=== PATIENT | female | born 1955 | race Caucasian/White ===

== ENCOUNTER → 2017-01-08 | Outpatient (CLI) | payer OTHER ==
[~2017-01-08] MED LIST: ACET-749 PO; ALL180 PO; ALPR-411 PO; ASPEC81 PO; ASPI81TA28 PO; ATEN-175 PO; B-CO1CAP17 PO; CETI10TA84 PO; CHOL2000 PO; CLON0.1T12 PO; CYAN100020 PO; DULA0.5I INJ; FEXO1TAB49 PO; FURO-85 PO; LINA1TAB PO; LSX20 PO; MULT-506 PO; NTRGSL/4 SL; NXM/40 PO
== END | disposition home or self-care (01) ==
LOC: C.PATH 13:30
PROVIDERS: ATTEND Dermatology
DX: L57.0 Actinic keratosis (principal)

== ENCOUNTER → 2017-06-03 | Outpatient (CLI) | payer OTHER ==
[~2017-06-03] MED LIST changes: -ALPR-411 PO; -ASPI81TA28 PO; -B-CO1CAP17 PO; -CHOL2000 PO; -CYAN100020 PO; -DULA0.5I INJ; -FEXO1TAB49 PO; -FURO-85 PO; -MULT-506 PO; -NTRGSL/4 SL
[2017-06-03 10:17] LABS: ESTIMATED AVERAGE GLUCOSE 169 mg/dl; HA1C FLAG Normal (Normal)
[2017-06-03 10:20] LABS: ALT/SGPT 39 U/L (12-78); BLOOD UREA NITROGEN 15 mg/dl (7-18); BUN/CREATININE RATIO 17.6 (10-20); CALCIUM 9.4 mg/dl (8.5-10.1); CARBON DIOXIDE 26 mmol/L (21-32); CHLORIDE 105 mmol/L (98-107); CHOLESTEROL 150 mg/dl (0-200); CREATININE 0.87 mg/dl (0.60-1.20); GLUCOSE 130 mg/dl (70-99); POTASSIUM 4.2 mmol/L (3.5-5.1); SODIUM 139 mmol/L (136-145); TRIGLYCERIDES 323 mg/dl (0-150); VERY LOW DENSITY LIPOPROT CALC 65 mg/dl
[2017-06-03 10:22] LABS: ALB/GLOB RATIO 1.1 (0.9-2); ALKALINE PHOSPHATASE 95 U/L (45-117); AST/SGOT 34 U/L (15-37); CHOLESTEROL/HDL RATIO 4.7; HDL CHOLESTEROL 32 mg/dl; LDL CHOLESTEROL CALCULATED 53 mg/dl
[2017-06-03 10:26] LABS: RATIO 11.1 mcg/mg (0-30.0)
== END | disposition home or self-care (01) ==
LOC: C.LAB1850 08:21
PROVIDERS: ATTEND Nurse Practitioner
DX: E11.49 Type 2 diabetes mellitus with other diabetic neurological complication (principal)

== ENCOUNTER → 2017-07-08 | Outpatient (CLI) | payer OTHER ==
--- NOTE | 2017-07-08 12:32 | DIAGNOSTIC IMAGING REPORT ---
R FOOT MIN 3 VIEWS ROUTINE HISTORY: 61 years-old Female FOREIGN BODY foreign body of the right foot status post puncture wound COMPARISON: Right foot radiographs 04/01/2011 TECHNIQUE: 3 views of the right foot FINDINGS: Study is limited secondary to position of the toes on the lateral projection. There is a 2.0 x 1.6 cm linear radiopaque object of the second digit which appears to be lodged within the medullary space of the second proximal phalanx with distal tip projecting into the PIP joint. No definite fracture identified. Soft tissue swelling about the second digit. Multifocal degenerative changes are noted throughout the midfoot and forefoot with hallux valgus deformity. Moderate first MTP joint and multidigit interphalangeal joint osteoarthritis, progressed from prior study. Mild spurring about the calcaneus. IMPRESSION: 1. 2.0 x 1.6 cm linear radiopaque object of the second digit appears lodged within the medullary space of the second proximal phalanx. Study is somewhat limited secondary to positioning as above. 2. Hallux valgus deformity with multifocal progressive degenerative changes about the forefoot and hindfoot as above. 3. No acute fracture or dislocation identified. The above report was generated using voice recognition software. It may contain grammatical, syntax or spelling errors. Electronically signed by: Geoff Connor M.D. 07/08/2017 12:31 PM Dictated Date/Time: 07/08/2017 12:27 PM
== END | disposition home or self-care (01) ==
LOC: C.RAD1850 12:10
PROVIDERS: ATTEND Physician Assistant
DX: S91.349A Puncture wound with foreign body, unspecified foot, initial encounter (principal); X58.XXXA Exposure to other specified factors, initial encounter

== ENCOUNTER → 2017-07-14 | Outpatient (CLI) | payer OTHER ==
--- NOTE | 2017-07-15 07:56 | MAMMOGRAPHY REPORT ---
BILATERAL DIGITAL SCREENING MAMMOGRAM TOMOSYNTHESIS WITH CAD: 07/14/2017 CLINICAL HISTORY: Routine screening. Patient has no complaints. TECHNIQUE: Breast tomosynthesis in addition to standard 2D mammography was performed. Current study was also evaluated with a Computer Aided Detection (CAD) system. COMPARISON: Comparison is made to exams dated: 07/10/2016 mammogram, 07/04/2015 mammogram, 02/02/2014 mammogram, 08/31/2013 ultrasound, 08/26/2012 ultrasound, and 08/31/2013 mammogram - [facility]. BREAST COMPOSITION: The tissue of both breasts is heterogeneously dense, which may obscure small mas ses. FINDINGS: There are numerous bilateral groupings of faint punctate microcalcifications in the breast s, and multiple bilateral partially circumscribed masses, most likely representing benign fibrocystic changes. No suspicious spiculated or irregular mass, architectural distortion or cluster of new, mable picious microcalcifications is seen. IMPRESSION: ACR BI-RADS CATEGORY 2: BENIGN There is no mammographic evidence of malignancy. A 1 year screening mammogram is recommended. The pa tient will receive written notification of the results. Approximately 10% of breast cancers are not detected with mammography. A negative mammographic report should not delay biopsy if a clinically suggestive mass is present. Aide Berry M.D. ay/:07/14/2017 15:10:08 Software Test Developer: Brittney ANTUNEZ(R)(M), [facility] letter sent: Normal 1/2 BI-RADS Code: ACR BI-RADS Category 2: Benign
== END | disposition home or self-care (01) ==
LOC: C.MAMM 09:44
PROVIDERS: ATTEND Nurse Practitioner
DX: Z12.31 Encounter for screening mammogram for malignant neoplasm of breast (principal)

== ENCOUNTER 2017-09-18 05:52 | Inpatient (IN) | payer OTHER ==
[2017-08-25 11:34] VITALS: BMI 40.0
--- NOTE | 2017-08-25 12:15 | PAT Medication Instructions ---
Service Date Aug 25, 2017. Current Home Medication List Acetaminophen/Codeine (Tylenol W/Codeine #3), 2 TAB PO BID Alprazolam (Xanax), 0.5 MG PO PRN Aspirin (Aspirin Ec), 81 MG PO QAM Atenolol (Tenormin), 100 MG PO BID Cetirizine (Zyrtec), 10 MG PO QAM PRN for PRN Cholecalciferol (Vitamin D3), 1 CAP PO QPM Clonidine Hcl (Catapres), 1 TAB PO BID Cyanocobalamin (Vitamin B12), 1,000 MCG PO QAM Dulaglutide (Trulicity), 1.5 MG INJ WEEKLY Esomeprazole Magnesium (Nexium), 40 MG PO QAM Fexofenadine Hcl (Alyssa Allergy), 1 TAB PO PRN Furosemide (Lasix), 20 MG PO PRN Multivitamin (Multivitamin), 1 TAB PO QAM Nitroglycerin (Nitrostat), 1 TAB SL UD PRN for PRN Vitamin B Cmplx/Vitc/Folic Ac (Nephrocaps), 1 CAP PO QAM Medication Instructions For Your Scheduled Surgery Continue as directed: Dulaglutide (Trulicity), 1.5 MG INJ WEEKLY Nitroglycerin (Nitrostat), 1 TAB SL UD PRN for PRN - Hold the following medications the morning of surgery: Vitamin B Cmplx/Vitc/Folic Ac (Nephrocaps), 1 CAP PO QAM Multivitamin (Multivitamin), 1 TAB PO QAM Furosemide (Lasix), 20 MG PO PRN Cetirizine (Zyrtec), 10 MG PO QAM PRN for PRN Cyanocobalamin (Vitamin B12), 1,000 MCG PO QAM Fexofenadine Hcl (Alyssa Allergy), 1 TAB PO PRN - Take the following medications the morning of surgery with a sip of water: Aspirin (Aspirin Ec), 81 MG PO QAM Atenolol (Tenormin), 100 MG PO BID Acetaminophen/Codeine (Tylenol W/Codeine #3), 2 TAB PO BID (if needed, can be taken up to four hours before surgery) Alprazolam (Xanax), 0.5 MG PO PRN (if needed) Clonidine Hcl (Catapres), 1 TAB PO BID Esomeprazole Magnesium (Nexium), 40 MG PO QAM - Take the following medications as scheduled the night before surgery: Furosemide (Lasix), 20 MG PO PRN (if needed) Atenolol (Tenormin), 100 MG PO BID Acetaminophen/Codeine (Tylenol W/Codeine #3), 2 TAB PO BID Alprazolam (Xanax), 0.5 MG PO PRN (if needed) Cetirizine (Zyrtec), 10 MG PO QAM PRN for PRN (if needed) Cholecalciferol (Vitamin D3), 1 CAP PO QPM Clonidine Hcl (Catapres), 1 TAB PO BID Fexofenadine Hcl (Alyssa Allergy), 1 TAB PO PRN (if needed) If you have any questions please call us at [phone] or [phone] or [phone]
--- NOTE | 2017-08-25 13:11 | DIAGNOSTIC IMAGING REPORT ---
TWO VIEW CHEST CLINICAL HISTORY: Preoperative examination. FINDINGS: PA and lateral chest radiographs are compared to study dated 10/20/2013. The cardiomediastinal silhouette is unremarkable. The lungs and pleural spaces are clear. There is no pneumothorax. The skeletal structures are osteopenic. Degenerative change and scoliosis are noted in the thoracic spine. IMPRESSION: No active disease in the chest. Electronically signed by: Hardeep Story M.D. 08/25/2017 1:09 PM Dictated Date/Time: 08/25/2017 1:09 PM
[2017-08-25 13:30] LABS: CREATININE 0.83 mg/dl (0.60-1.20)
[2017-08-25 13:36] LABS: PTT PATIENT 25.9 SECONDS (21.0-31.0)
[2017-08-25 13:50] LABS: BASO % 0.6 %; BASO ABS # 0.04 K/uL (0-0.2); EOS % 2.2 %; EOS ABS # 0.16 K/uL (0-0.5); HEMATOCRIT 42.8 % (37-47); HEMOGLOBIN 14.3 g/dL (12.0-16.0); IG# 0.01 K/uL (0.00-0.02); LYMPH % 31.3 %; LYMPH ABS # 2.27 K/uL (1.2-3.4); MEAN CELL VOLUME 88.4 fL (80-100); MEAN CORPUSCULAR HEMOGLOBIN 29.5 pg (25-34); MEAN CORPUSCULAR HGB CONC 33.4 g/dl (32-36); MEAN PLATELET VOLUME 10.5 fL (7.4-10.4); MONO % 8.4 %; MONO ABS # 0.61 K/uL (0.11-0.59); NEUT % 57.4 %; NEUT ABS # 4.16 K/uL (1.4-6.5); PLATELET COUNT 169 K/uL (130-400); RED CELL DISTRIBUTION WIDTH CV 13.1 % (11.5-14.5); RED CELL DISTRIBUTION WIDTH SD 42.3 fL (36.4-46.3); WHITE BLOOD COUNT 7.25 K/uL (4.8-10.8)
--- NOTE | 2017-09-17 07:21 | HISTORY & PHYSICAL EXAMINATION ---
DATE OF ADMISSION: 09/18/2017 CHIEF COMPLAINT: Primary osteoarthritis of the left knee. HISTORY OF PRESENT ILLNESS: Claire is a pleasant 61-year-old female who I initially did a knee arthroscopy on back in 2010. At that time I noticed her to have arthritis in her knee. Unfortunately, she has continued to have pain over the past 6 years. I have given her multiple injections without much relief. X-rays have been worsening and she has elected to proceed with a left total knee arthroplasty. She understands the risks, benefits, and alternatives to the procedure. PAST MEDICAL HISTORY: Significant for non-insulin dependent diabetes, hypertension. PAST SURGICAL HISTORY: Significant for hysterectomy, toe amputation, cholecystectomy and left knee arthroscopy. ALLERGIES: MORPHINE, AVELOX AND AILYN INHIBITORS. MEDICATIONS: Tylenol #3 as needed for pain, alprazolam 0.5 mg twice a day as needed, aspirin 81 mg daily, atenolol 50 mg twice a day as needed, betamethasone ointment twice a day, clonidine 0.1 mg twice a day, Lasix 20 mg daily as needed, glimepiride 6 mg daily, indomethacin 50 mg 3 times a day as needed for gout, lansoprazole 30 mg daily, meclizine 25 mg 3 times a day as needed and Trulicity injection weekly. FAMILY HISTORY: Significant for stroke, diabetes. SOCIAL HISTORY: She is , has 2 kids, has 1-2 drinks per week and smokes a half pack a day. REVIEW OF SYSTEMS: She complains of left knee pain. All other pertinent review of systems are negative. PHYSICAL EXAMINATION: GENERAL: She is awake, alert and oriented x3. She is in no apparent distress. She is very pleasant. HEENT: Pupils are equal, round and reactive to light. Extraocular motion intact. Oral mucosa is pink and moist. HEART: Regular rate per radial pulse. LUNGS: [place] symmetrically bilaterally with no audible breath sounds. ABDOMEN: Soft, nontender, nondistended. MUSCULOSKELETAL: On physical examination of her knee she has some minimal deformity. She has decent motion from 0-120 degrees. She has no instability. She has significant tenderness to palpation over both the distal, medial and lateral femoral condyles. There is trace effusion. IMAGING DATA: X-rays of the left knee do show advanced osteoarthritis with joint space narrowing and osteophyte formation. IMPRESSION: Primary osteoarthritis of the left knee. PLAN: Will proceed with a Biomet Vanguard left total knee arthroplasty. Postoperatively, she will be started on aspirin for DVT prophylaxis and discharged to general orthopedic floor. She will likely be kept for 2 midnights for postoperative medical management.
[2017-09-18] VITALS (10 sets, daily range): BP systolic 108–142; BP diastolic 67–89; PULSE 74–94; TEMP 36.4–36.7; O2SAT 92–97; Ht 170.2 cm; Wt 117.7 kg
[~2017-09-18] VITALS: Ht 170.2 cm; Wt 117.7 kg
[~2017-09-18 05:52] MED LIST changes: -ACET-749 PO; +ACET300T3 PO; -ALL180 PO; +ALPR-411 PO; -ASPEC81 PO; +ASPI81TA28 PO; +B-COCAP2 PO; +CHOL2000 PO; +CYAN100020 PO; +DULA0.5I INJ; +FEXO1TAB49 PO; +FURO-85 PO; -LINA1TAB PO; -LSX20 PO; +MULT-506 PO; +NTRGSL/4 SL
[2017-09-18] MEDS ORDERED: ACETAMINOPHEN 500 MG TAB PO SCH (06:00)
[2017-09-18] MEDS ORDERED: ROPIVACAINE 5MG/ML 30 ML 150 MG, BUPIVACAINE 0.5% MPF INJ 30 ML, EpINEphrine HCL INJ 0.... INFIL SCH ×8 (06:00)
[2017-09-18] MEDS ORDERED: LACTATED RINGER'S 1000ML 1,000 ML IV SCH (06:00)
[2017-09-18] MEDS ORDERED: LACTATED RINGER'S 1000ML IV SCH (06:00)
[2017-09-18] MEDS ORDERED: GABAPENTIN 300 MG CAP PO SCH (06:00)
[2017-09-18] MEDS ORDERED: FAMOTIDINE 20 MG TAB PO SCH (06:00)
[2017-09-18] MEDS ORDERED: LACTATED RINGER'S 1000ML 500 ML IV SCH (06:00)
[2017-09-18] MEDS ORDERED: VANCOMYCIN IV 1,750 MG in SODIUM CHLORIDE 0.9% 500ML 500 ML IV SCH (06:00)
[2017-09-18] MEDS: TRANEXAMIC ACID INJ 1,000 MG in SYRINGE 0 ML IV SCH ×2 (06:30→08:22)
[2017-09-18] MEDS ORDERED: IBUP-103 PO (06:39)
[2017-09-18] MEDS ORDERED: BUPIVACAINE 0.5 % 5 MG/1 ML PF 10ML VIAL ONE (06:53)
[2017-09-18] MEDS ORDERED: EpHEDrine SULFATE INJ 50 MG/ML AMP IV PRN (07:00)
[2017-09-18] MEDS ORDERED: ATROPINE SULFATE 0.1 MG/ML 5ML SYR IV PRN (07:00)
[2017-09-18] MEDS ORDERED: FENTANYL CITRATE INJ 50 MCG/1 ML 2 ML VIAL IV PRN (07:00)
[2017-09-18] MEDS ORDERED: ONDANSETRON INJ 2 MG/ML 2 ML VIAL IV PRN ×2 (07:00→10:30)
[2017-09-18] MEDS ORDERED: ORTHO JOINT ANESTHETIC ONE (07:46)
[2017-09-18] MEDS ORDERED: BACITRACIN 50000 UNIT VIAL ONE (07:46)
[2017-09-18] MEDS ORDERED: PROPOFOL IV EMULSION 10 MG/ML 20 ML VIAL IV ONE (08:20)
[2017-09-18] MEDS ORDERED: LIDOCAINE HCL 2% 2 ML VIAL (20MG/ML) ONE (08:20)
[2017-09-18] MEDS ORDERED: FENTANYL CITRATE INJ 50 MCG/1 ML 2 ML VIAL ONE (08:20)
[2017-09-18] MEDS ORDERED: MIDAZOLAM HCL 1 MG/ML 2ML VIAL ONE ×2 (08:21→09:04)
--- NOTE | 2017-09-18 08:51 | History & Physical Bridge Note ---
H&P Re-Evaluation Bridge Note: I have examined the patient, reviewed the History & Physical and in the interval since the performance of the History & Physical I have noted the following changes of clinical significance: No changes noted
[2017-09-18] MEDS ORDERED: EpHEDrine SULFATE 50MG/5ML SYR ONE (09:09)
[2017-09-18] MEDS ORDERED: CETIRIZINE HCL 10 MG TAB PO PRN (10:30)
[2017-09-18] MEDS ORDERED: FUROSEMIDE 20 MG TAB PO PRN (10:30)
[2017-09-18] MEDS ORDERED: FEXOFENADINE HCL 180 MG TAB PO PRN (10:30)
[2017-09-18] MEDS ORDERED: SOD PHOSPHATE/SOD BIPHOSPHATE ENEMA 132 ML BTL PR PRN (10:30)
[2017-09-18] MEDS ORDERED: MAGNESIUM HYDROXIDE SUSP 30 ML UDC PO PRN (10:30)
[2017-09-18] MEDS ORDERED: NITROGLYCERIN 0.4 MG SL PER TAB CHARGE SL PRN (10:30)
[2017-09-18] MEDS ORDERED: VANCOMYCIN IV SCH (10:30)
[2017-09-18] MEDS ORDERED: ALPRAZOLAM 0.5 MG TAB PO PRN (10:30)
[2017-09-18] MEDS ORDERED: BISACODYL 10 MG SUPP PR PRN (10:30)
[2017-09-18] MEDS ORDERED: SODIUM CHLORIDE 0.9% IV SCH (10:30)
[2017-09-18] MEDS ORDERED: METOCLOPRAMIDE HCL INJ 5 MG/ML 2 ML VIAL IV PRN (10:30)
--- NOTE | 2017-09-18 10:35 | [facility] Post Operative Brief Note ---
Immediate Operative Summary Operative Date Sep 18, 2017. Pre-Operative Diagnosis Left knee primary osteoarthritis Post-Operative Diagnosis Left knee primary osteoarthritis Procedure(s) Performed Left Total Knee Arthroplasty Surgeon Dr. Hubbard Ticket Collector Or Usher Surgeon(s) Wade Moses PA-C Estimated Blood Loss 10 cc Findings as above Specimens A: Left knee bone and tissue Complication(s) None Disposition Recovery Room / PACU
--- NOTE | 2017-09-18 11:23 | DIAGNOSTIC IMAGING REPORT ---
TWO VIEWS LEFT KNEE CLINICAL HISTORY: Postoperative examination. FINDINGS: AP and crosstable lateral portable views of the left knee are obtained. A left knee arthroplasty is in near anatomic alignment. There has been undersurface remodeling of the patella. No acute fracture is seen. There are expected postoperative changes around the knee including skin clips, a surgical drain, soft tissue edema, and subcutaneous gas. IMPRESSION: Expected postoperative changes status post left knee arthroplasty. No acute fracture is seen. Electronically signed by: Hardeep Story M.D. 09/18/2017 11:22 AM Dictated Date/Time: 09/18/2017 11:22 AM
--- NOTE | 2017-09-18 12:08 | Anesthesiology Progress Note ---
Anesthesia Post Op Note Date & Time Sep 18, 2017 at 12:08 Vital Signs Pain Intensity: 3 Vital Signs Past 12 Hours Date Time Temp Pulse Resp B/P (MAP) Pulse Ox O2 Delivery O2 Flow Rate FiO2 09/18/17 11:46 36.4 76 16 119/75 (90) 95 Room Air 09/18/17 11:31 77 16 09/18/17 11:31 77 16 92 09/18/17 11:30 121/81 09/18/17 11:26 77 16 111/78 93 09/18/17 11:26 77 16 09/18/17 11:23 36.8 09/18/17 11:21 78 15 09/18/17 11:21 79 15 95 09/18/17 11:20 133/87 09/18/17 11:16 79 15 94 09/18/17 11:16 79 15 09/18/17 11:15 121/75 09/18/17 11:11 79 13 09/18/17 11:11 79 13 96 09/18/17 11:10 79 14 09/18/17 11:10 78 14 124/77 97 09/18/17 11:05 79 16 09/18/17 11:05 78 16 105/72 95 09/18/17 11:00 80 21 113/75 96 09/18/17 11:00 81 21 09/18/17 10:55 84 115/71 96 09/18/17 10:55 36.7 83 16 115/71 97 Nasal Cannula 2 09/18/17 10:55 84 09/18/17 06:50 36.5 74 20 142/89 96 Room Air Notes Mental Status: alert / awake / arousable, participated in evaluation Pt Amnestic to Procedure: Yes Nausea / Vomiting: adequately controlled Pain: adequately controlled Airway Patency, RR, SpO2: stable & adequate BP & HR: stable & adequate Hydration State: stable & adequate Neuraxial Anesthesia: was administered, sensory block is resolving Anesthetic Complications: no major complications apparent
--- NOTE | 2017-09-18 12:27 | OPERATIVE REPORT ---
DATE OF OPERATION: 09/18/2017 PREOPERATIVE DIAGNOSIS: Primary osteoarthritis of the left knee. PROCEDURE: Left total knee arthroplasty. SURGEON: Dr. Poncho Hubbard. TROUBLE LOCATER: Wade Moses PA-C, whose assistance was necessary for retraction, and closure. ANESTHESIA: Spinal with a left adductor nerve block. COMPLICATIONS: None. CONDITION: Stable to PACU. IMPLANTS USED: I used a Biomet Vanguard left total knee arthroplasty with a size 70 left femur, a size 75 tibia, a size 10 mm posterior stabilized bearing and a 31 mm patella. All components were cemented with Palacos-G cement. INDICATIONS: Claire is a pleasant 61-year-old female who has been dealing with chronic left knee pain. I did a knee arthroscopy on her about 6 years ago. She has been dealing with knee pain since. Her x-rays have shown progressive arthritis. She elected to proceed with a left total knee arthroplasty. OPERATION AND FINDINGS: On 09/18/2015 she arrived at [facility] for the above procedure. She was seen in the preoperative holding area and the operative extremity was identified and signed. She was given a spinal anesthetic and a left adductor nerve block and a preoperative antibiotic. She was taken back to the operating room, laid on the table in supine position and given basic sedation. The left knee was then prepped and draped in sterile fashion. Time-out was done and the patient and operative extremity was properly identified. A longitudinal incision was made directly over the patella. Dissection was taken down to the extensor mechanism and a medial parapatellar arthrotomy was used. The fat pad was left intact. The medial retinaculum was released. The knee was then flexed. ACL, PCL and meniscus were removed. A drill was sent down the center of the femoral canal followed by an intramedullary kiet. Off that kiet, a distal femoral cutting block was placed and 12 mm was resected off the distal femur at 5 degrees of valgus. A posterior referencing guide was then used to measure the distal femur and the femur measured to be a size 70. Two drill holes were placed in 3 degrees of external rotation and a 4-in-1 cutting block was impacted into place. Anterior, posterior and chamfer cuts were then made. A box cutting guide was then impacted into place and the box was resected for the posterior stabilizing component. The proximal tibia was then exposed. A drill was sent down the center of the tibial canal followed by an intramedullary kiet. Off that kiet a proximal tibial resection guide was placed and 3 mm was resected off the tibial plateau. The posterior aspect of the knee was then opened up. Any additional meniscal or bony soft tissue remnants were removed. The tibia was then sized to be a size 75. It was set in the appropriate rotation, drilled and then punched. Trial components were then placed. The knee was brought through a full range of motion and felt to be stable. The patella was then everted and 8 mm was resected off the posterior aspect of the patella. The patella measured to be a size 31. Three peg holes were drilled. Trial components were then removed and final components were then cemented into place with Palacos-G cement. The surrounding soft tissues were then injected with 100 mL of orthopedic pain control cocktail. The joint was then irrigated with 3 liters of normal saline solution with bacitracin. The knee was brought through a full range of motion and felt to be stable. Two drains were placed. The extensor mechanism was closed with #1 Vicryl suture, both proximally and distally and #2 FiberWire suture in the superior medial aspect of the knee. The skin was then closed with 2-0 Vicryl, 3-0 V-Loc suture and drew. She was then placed in a soft compressive dressing and taken to the postanesthesia care unit in stable condition. She tolerated the procedure well. I attest to the content of the Intraoperative Record and any orders documented therein. Any exception s are noted below.
--- NOTE | 2017-09-18 13:35 | NUR ---
Case Management: Met with pt at bedside. Pt is a Registered Nurse. Pt states she lives with her in a one story home with two steps to enter. Reports her is able to assist her. Pt reports being independent with ADLs and uses a cane on occasion. She has a wheeled walker, crutches, and raised toilet seat. She plans to return home with home health. Choices offered and pt requests referral to [facility]. Referral being placed. Case Management to follow.
[2017-09-18] MEDS: HYDROCODONE/ACETAMIN 5/325MG TAB PO PRN ×2 (14:08→19:30)
[2017-09-18] MEDS: SODIUM CHLORIDE 0.9% 1000ML 1,000 ML IV SCH ×2 (14:08→23:32)
[2017-09-18] MEDS: KETOROLAC TROMETHAMINE 30 MG/ML VIAL IV. SCH ×2 (17:37→23:32)
[2017-09-18] MEDS: CLONIDINE HCL 0.1 MG TAB PO SCH (17:47)
[2017-09-18] MEDS ORDERED: VANCOMYCIN IV 1,750 MG in SODIUM CHLORIDE 0.9% 500ML 500 ML IV ONE (18:00)
[2017-09-18] MEDS ORDERED: NURSING VERBAL MED ORDER ONE (18:00)
[2017-09-18] MEDS ORDERED: CLONIDINE HCL 0.1 MG TAB PO SCH (21:00)
[2017-09-18] MEDS ORDERED: SENNA 8.6 MG TAB PO SCH (21:00)
[2017-09-18] MEDS ORDERED: CHOLECALCIFEROL 1000 INTER.UNIT TAB PO SCH (21:00)
[2017-09-18] MEDS: DOCUSATE SODIUM 100 MG CAP PO SCH (21:04)
[2017-09-18] MEDS: ASPIRIN 325 MG ECTAB PO SCH (21:05)
--- NOTE | 2017-09-19 01:24 | NUR ---
ID: Patient alert and oriented x4. Pain managed with PO medications. IVF infusing per MD orders. Tolerating a regular diet. OOB with assist of one and walker. Voiding without difficulty. Discharge plans to return home with home health when medically stable.
[2017-09-19 03:30] VITALS: BP 113/69; PULSE 79; TEMP 36.6; O2SAT 95
[2017-09-19] MEDS: HYDROCODONE/ACETAMIN 5/325MG TAB PO PRN ×2 (04:03→09:46)
[2017-09-19 05:48] VITALS: BP 109/69; PULSE 81
[2017-09-19] MEDS: CLONIDINE HCL 0.1 MG TAB PO SCH (05:49)
[2017-09-19] MEDS: KETOROLAC TROMETHAMINE 30 MG/ML VIAL IV. SCH ×2 (05:50→11:33)
[2017-09-19 06:32] LABS: HEMATOCRIT 33.7 % (37-47); HEMOGLOBIN 11.5 g/dL (12.0-16.0); MEAN CELL VOLUME 88.7 fL (80-100); MEAN CORPUSCULAR HEMOGLOBIN 30.3 pg (25-34); MEAN CORPUSCULAR HGB CONC 34.1 g/dl (32-36); MEAN PLATELET VOLUME 9.4 fL (7.4-10.4); PLATELET COUNT 127 K/uL (130-400); RED CELL DISTRIBUTION WIDTH CV 13.2 % (11.5-14.5); RED CELL DISTRIBUTION WIDTH SD 42.4 fL (36.4-46.3); WHITE BLOOD COUNT 8.57 K/uL (4.8-10.8)
[2017-09-19 07:01] LABS: CALCIUM 8.4 mg/dl (8.5-10.1); CREATININE 0.69 mg/dl (0.60-1.20); POTASSIUM 4.3 mmol/L (3.5-5.1)
[2017-09-19 07:15] VITALS: PULSE 77; TEMP 36.6; O2SAT 96
[2017-09-19] MEDS: DOCUSATE SODIUM 100 MG CAP PO SCH (08:35)
[2017-09-19] MEDS: ASPIRIN 325 MG ECTAB PO SCH (08:36)
[2017-09-19] MEDS: SODIUM CHLORIDE 0.9% 1000ML 1,000 ML IV SCH (08:37)
[2017-09-19] MEDS ORDERED: MULTIVITAMIN TAB PO SCH (09:00)
[2017-09-19] MEDS ORDERED: PANTOprazole SOD 40 MG TAB PO SCH (09:00)
[2017-09-19] MEDS ORDERED: CYANOCOBALAMIN 500 MCG TAB (VIT B-12) PO SCH (09:00)
[2017-09-19] MEDS ORDERED: KETO10TA PO (09:39)
[2017-09-19] MEDS ORDERED: HYDR-5688 PO (09:39)
[2017-09-19] MEDS ORDERED: ASPEC325 PO (09:39)
--- NOTE | 2017-09-19 09:41 | Discharge Instructions ---
Discharge Instructions Date of Service Sep 19, 2017. Admission Reason for Admission: Left Knee Degenerative Joint Disease Discharge Discharge Diagnosis / Problem: Left Total Knee Discharge Goals Goal(s): Decrease discomfort, Improve function Activity Recommendations Activity Limitations: as noted below . Instructions / Follow-Up Instructions / Follow-Up Activity and Therapy Recommendations: * If you are using [facility] then Physical Therapy will be provided until they feel you are ready to start Outpatient Physical Therapy. If you are not using a Home Health agency then Outpatient Physical Therapy should start about 3-5 days from your day of surgery. Therapy will last about 6-10 weeks * It is important not to put a pillow under your knee when you are relaxing or sleeping. It is just as important to make sure you are getting your knee perfectly straight as it is to regain your knee bend. * You were shown a series of exercises in the hospital. Do these exercises three times each day including the exercises you were shown in physical therapy. * Get up and walk several times each day. For the first four weeks, try not to stand or walk for more than one hour at a time. If you do stand or walk for more than one hour, you will not hurt anything, but your leg will likely swell. * As you feel comfortable, you may change from the walker or crutches to a cane and then to independent walking. Medications: * Narcotic You will likely be sent home from the hospital with a prescription for the narcotic pain medication that worked best throughout your stay. * Aspirin Most patients will be required to take Aspirin 325mg twice a day for 6 weeks after surgery. This is obtained [id number] and a prescription is not necessary. * Other medications may be prescribed for specific circumstances. If you have any questions, please call the office at . * Resume previous home medications unless otherwise instructed TEDs/Elastic Stockings: The white elastic stockings help limit swelling and prevent blood clots from forming in your legs.~ The more you wear them, the more they work. Wear them for six weeks. Showering: You may shower 5 days from the day of surgery. Let the soapy shower water run over the drew. Do not scrub or soak the incision. Things To Watch For: * Drainage from the incision site that occurs more than one week after your surgery. * Increased redness at the incision site. * Fever above 102 degrees Fahrenheit. * Unusual chest pain or shortness of breath. * Call [facility] at with any of the above problems Follow-Up Visit: Follow-up with Dr. Hubbard 2 weeks after your day of surgery. An appointment was probably scheduled when you signed-up for surgery in the office. If you have any questions call Office Instructions: More detailed instructions as well as Frequently Asked Questions were provided in a folder by our office when you signed-up for surgery. Please review these instructions when you get home. If you have any further questions or concerns, please feel free to call the office at [phone] Current Hospital Diet Patient's current hospital diet: Regular Diet Discharge Diet Recommended Diet: Regular Diet Procedures Procedures Performed: Left Total Knee Arthroplasty Pending Studies Studies pending at discharge: no Medical Emergencies . Who to Call and When: Medical Emergencies: If at any time you feel your situation is an emergency, please call [phone] immediately. . Non-Emergent Contact Non-Emergency issues call your: Surgeon Call Non-Emergent contact if: wound has increased drainage, wound has increased redness . "Provider Documentation" section prepared by Poncho Hubbard. . VTE Core Measure Inpt VTE Proph given/why not?: Other Anticoagulation (Aspirin 325 twice a day for 6 weeks)
--- NOTE | 2017-09-19 09:50 | PROGRESS NOTE ---
DATE: 09/19/2017 CHIEF COMPLAINT: Status post left total knee arthroplasty postop day #1. PROGRESS: Claire was seen and examined at bedside today. Overall, she is doing very well. She is walking around the hallways with physical therapy and already did stairs. She is really not having much pain in her knee. She is happy with her progress and has no complaints. PHYSICAL EXAMINATION: LEFT KNEE HIP: The dressing is clean and dry and the drain is to suction. Her leg lengths are equal. She has active dorsiflexion and plantarflexion of her right ankle and sensation is intact. Her vital signs are all stable on room air and she is voiding on her own and already had a bowel movement. DATA: She has an H&H today of 11.5 and 33.7. Her glucose went up to 355 last night but because she is on Trulicity, it came down within a couple hours to 117. X-rays postoperatively of the left knee showed the prosthesis to be in anatomic alignment without any evidence of fracture, dislocation or loosening. IMPRESSION: Status post left total knee arthroplasty postop day #1. PLAN: At this point, she is doing very well and happy with the progress. She did well with therapy and was hoping to go home today. She is on aspirin for DVT prophylaxis. The nursing staff pulled the drain earlier this afternoon and discharged her to home.
--- NOTE | 2017-09-19 09:54 | DISCHARGE SUMMARY ---
DISCHARGE DIAGNOSIS: Primary osteoarthritis of the left knee. PROCEDURE: Left total knee arthroplasty on 09/18/[address] Poncho Hubbard. DISCHARGE INSTRUCTIONS: 1. Aspirin 325 mg twice a day for 6 weeks. 2. [place] 5/325 one or two every 4 hours as needed for pain. 3. Toradol 10 mg every 8 hours as needed, total of 15 tablets. 4. Xanax 0.5 mg as needed at night. 5. Atenolol 100 mg twice a day. 6. Zyrtec 10 mg as needed. 7. Catapres 0.1 mg twice a day. 8. Trulicity injection weekly. 9. Nexium 40 mg daily. 10. Alyssa 180 mg as needed. 11. Lasix 20 mg as needed. 12. Nitrostat as needed. 13. Continue all vitamins and minerals. 14. May shower 5 days from the day of surgery. 15. Follow up with Dr. Hubbard in 2 weeks. 16. Call the office of Dr. Hubbard with any questions or concerns. HOSPITAL COURSE: Claire is a pleasant 61-year-old female who initially I saw about 6 years ago. I did a knee arthroscopy and saw some arthritis and unfortunately, her knee arthritis progressed over the years. She has elected to proceed with a total knee arthroplasty. On 09/18/2017, she arrived at [facility] and underwent a left knee replacement without complications. She had a spinal anesthetic and a left adductor nerve block. Postoperatively, she was started on aspirin 325 mg twice a day for DVT prophylaxis and discharged to general orthopedic floor. Her hospital course was uneventful. On postop day #1, her H&H was stable at 11.5 and 33.7. She was ambulating around the hallways with physical therapy and already doing stairs. In the early afternoon on postop day #1, her dressing was changed, her drain was pulled and she was subsequently discharged to home with the above instructions.
[2017-09-19 10:44] VITALS: BP 109/69; PULSE 72; O2SAT 96
[2017-09-19 11:04] VITALS: BP 109/69; PULSE 72; TEMP 36.6; O2SAT 96
--- NOTE | 2017-09-19 12:10 | NUR ---
A: HV drain removed; applied 4x4/ABDs over drain sites and incision. Saline lock removed. D/c instructions given to patient/. Scripts included in packet. Hemovac emptied for 125 cc. 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
--- NOTE | 2017-09-19 13:22 | NUR ---
Case Management Note- Discharge instructions faxed to [facility]
== END 2017-09-19 12:30 | disposition home health service (06) | DRG 470 ==
LOC: C.ACU 05:52 → C.3E 06:28 → ENRESERV 11:02
PROVIDERS: ADMIT Orthopaedic Surgery; ATTEND Orthopaedic Surgery
PROC: 0SRD0J9 Replacement of Left Knee Joint with Synthetic Substitute, Cemented, Open Approach (ICD-10-PCS; principal; 2017-09-18 09:00)
DX: M17.12 Unilateral primary osteoarthritis, left knee (principal); E11.9 Type 2 diabetes mellitus without complications; I10 Essential (primary) hypertension; F17.200 Nicotine dependence, unspecified, uncomplicated; Z79.899 Other long term (current) drug therapy; Z79.84 Long term (current) use of oral hypoglycemic drugs; Z79.82 Long term (current) use of aspirin; Z83.3 Family history of diabetes mellitus; Z82.3 Family history of stroke

== ENCOUNTER → 2017-12-03 | Outpatient (CLI) | payer OTHER ==
[~2017-12-03] MED LIST changes: -ACET300T3 PO; +ASPEC325 PO; -ASPI81TA28 PO; +B-CO1CAP17 PO; -B-COCAP2 PO; +HYDR-5688 PO; +KETO10TA PO
== END | disposition home or self-care (01) ==
LOC: C.LABSPEC 16:55
PROVIDERS: ATTEND Nurse Practitioner
DX: R39.9 Unspecified symptoms and signs involving the genitourinary system (principal)

== ENCOUNTER → 2017-12-15 | Outpatient (CLI) | payer OTHER ==
--- NOTE | 2017-12-15 13:13 | DIAGNOSTIC IMAGING REPORT ---
LEFT HIP 2 VIEWS CLINICAL HISTORY: Left hip pain. FINDINGS: AP and frog-leg views of the left hip are correlated with pelvic CT dated 03/06/2015. The skeletal structures appear osteopenic. No fracture is identified involving the left hip or the visualized left hemipelvis. There is mild arthritic change and joint space narrowing of the left hip. The left sacroiliac joint is normal in appearance. The overlying soft tissues are within normal limits. IMPRESSION: Minimal degenerative change as above. No acute bony abnormality is seen involving the left hip. Electronically signed by: Hardeep Story M.D. 12/15/2017 1:12 PM Dictated Date/Time: 12/15/2017 1:11 PM
== END | disposition home or self-care (01) ==
LOC: C.RADBC 12:13
PROVIDERS: ATTEND Nurse Practitioner
DX: M25.552 Pain in left hip (principal)

== ENCOUNTER → 2018-05-08 | Outpatient (CLI) | payer OTHER ==
[~2018-05-08] MED LIST changes: -B-CO1CAP17 PO; +B-COCAP2 PO; -KETO10TA PO
[2018-05-08 08:37] LABS: BASO ABS # 0.06 K/uL (0-0.2); EOS % 2.2 %; EOS ABS # 0.13 K/uL (0-0.5); HEMATOCRIT 40.9 % (37-47); HEMOGLOBIN 13.7 g/dL (12.0-16.0); IG# 0.01 K/uL (0.00-0.02); LYMPH % 37.4 %; MEAN CELL VOLUME 82.1 fL (80-100); MEAN CORPUSCULAR HEMOGLOBIN 27.5 pg (25-34); MEAN CORPUSCULAR HGB CONC 33.5 g/dl (32-36); MEAN PLATELET VOLUME 10.1 fL (7.4-10.4); MONO % 9.5 %; MONO ABS # 0.56 K/uL (0.11-0.59); NEUT % 49.7 %; NEUT ABS # 2.93 K/uL (1.4-6.5); PLATELET COUNT 190 K/uL (130-400); RED CELL DISTRIBUTION WIDTH CV 13.9 % (11.5-14.5); RED CELL DISTRIBUTION WIDTH SD 41.7 fL (36.4-46.3); WHITE BLOOD COUNT 5.89 K/uL (4.8-10.8)
[2018-05-08 09:08] LABS: ALBUMIN 3.5 gm/dl (3.4-5.0); ALKALINE PHOSPHATASE 108 U/L (45-117); ALT/SGPT 21 U/L (12-78); AST/SGOT 15 U/L (15-37); BLOOD UREA NITROGEN 13 mg/dl (7-18); CALCIUM 8.9 mg/dl (8.5-10.1); CARBON DIOXIDE 26 mmol/L (21-32); CHOLESTEROL 148 mg/dl (0-200); CREATININE 0.81 mg/dl (0.60-1.20); GLUCOSE 145 mg/dl (70-99); LDL CHOLESTEROL CALCULATED 74 mg/dl; POTASSIUM 4.2 mmol/L (3.5-5.1); SODIUM 141 mmol/L (136-145); TOTAL PROTEIN 7.7 gm/dl (6.4-8.2)
[2018-05-08 09:35] LABS: HEMOGLOBIN A1C 7.1 % (4.5-5.6)
== END | disposition home or self-care (01) ==
LOC: C.LAB 07:32
PROVIDERS: ATTEND Nurse Practitioner
DX: E11.49 Type 2 diabetes mellitus with other diabetic neurological complication (principal); E78.5 Hyperlipidemia, unspecified

== ENCOUNTER → 2018-05-13 | Outpatient (CLI) | payer OTHER ==
[~2018-05-13] MED LIST changes: +OPTIRAY 320 IV PRN
--- NOTE | 2018-05-13 08:06 | DIAGNOSTIC IMAGING REPORT ---
CT OF THE ABDOMEN AND PELVIS WITH CONTRAST CLINICAL HISTORY: Pelvic pain. Family history of ovarian cancer. COMPARISON STUDY: CT of the abdomen and pelvis March 06, 2015. TECHNIQUE: Following IV administration of 117 mL of Optiray-320, axial images of the abdomen and pelvis were obtained from the lung bases to the proximal femurs. Images were reviewed in the axial, sagittal, and coronal planes. IV contrast was administered without complication. A dose lowering technique was utilized adhering to the principles of ALARA. CT DOSE: 1366.30 mGy.cm FINDINGS: Lung bases are clear. Note is made of fatty infiltration of the liver and mild splenomegaly. The adrenal glands, kidneys and pancreas are normal. There is no biliary ductal dilatation status post cholecystectomy. No ascites is present. There is no abdominal or pelvic lymphadenopathy. No hydronephrosis is present. Note is made of a 5 x 4.1 cm mass along the lesser curvature of the stomach, within the medial wall of the proximal gastric body. This appears to be submucosal in location. Caliber and wall thickness of small and large bowel are normal. There is colonic diverticulosis without evidence for acute diverticulitis. The appendix is normal. The uterus is surgically absent. The ovaries are not enlarged. There is no pelvic lymphadenopathy. No suspicious osseous lesion is noted. IMPRESSION: 1. 5 x 4.1 cm gastric mass along the lesser curvature, likely submucosal. A GI stromal tumor is favored however adenocarcinoma or lymphoma could appear similar. GI consultation for consideration for tissue sampling is recommended. 2. No acute process within the abdomen or pelvis. No abdominal or pelvic lymphadenopathy. 3. Fatty infiltration liver. 4. Mild splenomegaly. Electronically signed by: Torsten Diallo M.D. 05/13/2018 8:05 AM Dictated Date/Time: 05/13/2018 7:52 AM
== END | disposition home or self-care (01) ==
LOC: C.CTS 06:39
PROVIDERS: ATTEND Nurse Practitioner
DX: R10.2 Pelvic and perineal pain (principal); Z80.41 Family history of malignant neoplasm of ovary; D37.1 Neoplasm of uncertain behavior of stomach; K76.0 Fatty (change of) liver, not elsewhere classified

== ENCOUNTER 2020-03-19 07:55 | Observation (INO) ==
--- NOTE | 2020-03-14 09:58 | Anesthesiology Consultation ---
Date of Service March 14, 2020 Assessment & Plan (1) Encounter for pre-operative examination: COVID Status: As of 03/13 nurse assessment, patient denies travel to endemic area [[place] at [employer] [place] guidelines[place] known exposure/sick contacts, or symptoms of COVID19. Preoperative COVID19 testing to be completed on 03/15. BSG AM DOS Chart Review Chart Review: Acceptable Risk for Surgery and Patient NOT seen in Pre Admission Testing History Surgery Operation Date: 03/19/20 09:10 Proposed Procedures p Left Breast Lumpectomy with Needle Localization and Left Alex Lymph Node Biopsy - Hima Diehl MD, FACS Height/Weight Height: 5 ft 6 in Weight: 110.223 kg Allergies Allergy/AdvReac Type Severity Reaction Status Date / Time AILYN Inhibitors Allergy Severe ANAPHYLAXIS Verified 03/13/20 09:50 metformin Allergy Severe swelling Verified 03/13/20 09:50 in lips and tongue, rash-AQNAPHYLAXIS morphine Allergy Severe ANAPHYLAXIS Verified 03/13/20 09:50 oxycodone Allergy Severe MIGRAINES Verified 03/13/20 09:50 amlodipine Allergy Intermediate ITCHING Verified 03/13/20 09:50 cefuroxime Allergy Intermediate ITCHING Verified 03/13/20 09:50 SWELLING gabapentin Allergy Intermediate ITCHY AND Verified 03/13/20 09:50 SWELLING losartan Allergy Intermediate rash, Verified 03/13/20 09:50 itching moxifloxacin Allergy Intermediate ITCHING Verified 03/13/20 09:50 SWELLING Penicillins Allergy Intermediate HIVES Verified 03/13/20 09:50 pregabalin Allergy Intermediate itchy AND Verified 03/13/20 09:50 SWELLS hydrochlorothiazide AdvReac Mild ITCHING/HIV Verified 03/13/20 09:50 ES naproxen AdvReac Mild INCREASES Verified 03/13/20 09:50 SWELLING [employer] Allergy Severe ITCHING Uncoded 03/13/20 09:50 AND HIVES WITH [employer] Medications Home Medications Medication Instructions Recorded Confirmed Last Taken cholecalciferol (vitamin D3) 2,000 unit PO DAILY 06/16/18 03/13/20 12/07/19 [Vitamin D3] esomeprazole magnesium [Nexium] 40 mg PO QAM 06/16/18 03/13/20 12/07/19 furosemide [Lasix] 20 mg PO DAILY PRN 06/16/18 03/13/20 Unknown multivitamin 1 tab PO DAILY 06/16/18 03/13/20 12/07/19 nitroglycerin [Nitrostat] 1 dose SUBLINGUAL UD PRN 06/16/18 03/13/20 Unknown cyclobenzaprine 10 mg tablet 10 mg PO TID PRN #30 tab 03/11/19 03/13/20 Unknown atorvastatin 10 mg tablet 10 mg PO DAILY #30 tab 05/11/19 03/13/20 12/07/19 imatinib 400 mg tablet 400 mg PO DAILY #30 tab 05/11/19 03/13/20 12/07/19 atenolol 100 mg tablet 100 mg PO BID #180 tab 07/04/19 03/13/20 12/08/19 05:00 blood sugar diagnostic #100 ea 09/12/19 02/17/20 Unknown sucralfate [Carafate] 1 gm PO TID PRN 10/26/19 03/13/20 Unknown dulaglutide 1.5 mg/0.5 mL 1.5 mg SUBCUT WK #2 ml 12/05/19 03/13/20 12/02/19 subcutaneous pen injector ondansetron HCl 4 mg tablet 4 mg PO QID PRN #60 tab 12/05/19 03/13/20 12/07/19 prednisone 40 mg PO BID PRN 12/06/19 03/13/20 Unknown alprazolam 0.5 mg tablet 0.5 mg PO BID PRN #60 tab 12/07/19 03/13/20 12/07/19 clonidine HCl 0.1 mg tablet 0.1 mg PO BID #180 tab 01/10/20 03/13/20 Unknown cholecalciferol (vitamin D3) 1,250 50,000 units PO WEEKLY #8 tab 02/08/20 03/13/20 Unknown mcg (50,000 unit) tablet hydrocodone 5 mg-acetaminophen 325 2 tab PO Q6H PRN #60 tab 03/05/20 03/13/20 Unknown mg tablet Past Medical History Medical History Actinic keratosis Allergic rhinitis (Acute) Anxiety Arthralgia of multiple joints (Acute) Cancer GIST (GASTRIC TUMOR) REMOVED 08/2018 AT [place] Chest pain syndrome CHRONIC CHEST PAIN SYNDROME X YEARS; S/P CARDIAC CATH (1999--no obstructive disease), DSE (2015 -- negative for ischemia) Deep vein thrombosis 1990 Depression (Acute) Diabetes mellitus, type 2 Diabetic foot ulcer Dyslipidemia (Acute) Esophageal reflux (Acute) Fibromyalgia GERD (gastroesophageal reflux disease) GIST, malignant s/p excision 2018 Gout (Acute) Herpes zoster (Resolved) Hx of endometriosis Hx of gastritis Hyperlipidemia Hypertension Multiple nevi (Acute) Obesity Osteoarthritis Peripheral neuropathy Peripheral vascular disease Psoriasis (Acute) PVCs (premature ventricular contractions) Seborrheic keratosis (Acute) Vitamin D deficiency (Acute) Past Family History Family History Sister Ovarian cancer Grandfather Family history of esophageal cancer Mother Myocardial infarction Coronary heart disease Heart disease Hypertension Grandmother (Paternal) Diabetes Cancer Son Diabetes Type I Aunt Colorectal cancer maternal Unknown Breast cancer Grandfather (Paternal) Cancer Grandmother (Maternal) Diabetes Father Hypertension Denies family history of Prostate cancer Past Surgical History Surgical History Amputated toe LEFT SECOND TOE AMPUTATION D/T OSTEOMYELITIS Right 3rd toe 12-08-19 for osteomyelitis with diabetic toe ulcer Family history of reaction to anesthesia MOTHER AND SISTER-NAUSEA AND SLOW TO WAKE UP H/O basal cell carcinoma excision (Acute) History of amputation right third toe History of arthroscopy LEFT KNEE History of cardiac cath 1999= MINOR LUMINAL IRREGULARITIES History of cholecystectomy History of colonoscopy History of endoscopic gastrointestinal surgery ABDOMINAL TUMOR REMOVED History of esophagogastroduodenoscopy (EGD) History of hysterectomy partial History of surgery B/L VEIN STRIPPING History of tooth extraction History of total knee replacement LEFT TKA= 09/18/17= SAB X 1 ATTEMPT + PNB AT [facility] Social History Smoking Status: Former smoker tobacco type: cigarettes Do You Dip or Chew Tobacco: No Smoking End Date: ~1994 Hx Alcohol Use: Yes Alcohol type: wine and hard liquor alcohol intake frequency: holidays/special occasions only Hx Substance Use: No substance use type: does not use and prescription drug Testing Laboratory Results 01/30/20 WBC: 6.04 H/H: 14.2/41.9 PLATELETS: 217 SODIUM: 138 POTASSIUM: 4.6 CHLORIDE: 104 CO2: 26 BUN: 10 CREATININE: 0.99 GLUCOSE: 160 Electrocardiogram Date: 12/06/19 Findings: + NSR @ (67bpm) *unconfirmed Stress Test Date: 07/16/16 Type: DSE No EKG changes. Negative dobutamine stress echo for myocardial ischemia at 81% MPHR. The baseline echo notes normal LV function and no significant valvular abnormalities.
--- NOTE | 2020-03-19 06:37 | History & Physical Bridge Note ---
Date of Service March 19, 2020 History & Physical Bridge Note I have examined the patient, reviewed the History & Physical and in the interval since the performance of the History & Physical I have noted the following changes of clinical significance: no changes noted
[~2020-03-19 07:55] MED LIST changes: -ALPR-411 PO; -ASPEC325 PO; -ATEN-175 PO; -B-COCAP2 PO; -CETI10TA84 PO; -CHOL2000 PO; +CLINDAMYCIN 900 MG in DEXTROSE 5% 50 ML IV SCH; -CLON0.1T12 PO; -CYAN100020 PO; -DULA0.5I INJ; -FEXO1TAB49 PO; -FURO-85 PO; -HYDR-5688 PO; +LR 15ML/HR IV SCH; -MULT-506 PO; -NTRGSL/4 SL; -NXM/40 PO; -OPTIRAY 320 IV PRN
--- NOTE | 2020-03-19 09:29 | Nuclear Medicine Report ---
LEFT BREAST LYMPHOSCINTIGRAPHY CLINICAL HISTORY: BREAST CA COMPARISON STUDY: Breast MRI February 24, 2020. PROCEDURE: Patient presents today for left breast lymphoscintigraphy. The procedure, risks and benefi ts were discussed with the patient and informed consent was obtained. This procedure was performed by Dr. Diallo following a timeout. Skin of the left breast was prepped and draped in typical fashion . A total of 0.509 mCi of Lymphoseek is injected in 5 intradermal aliquots within a left periareolar distribution at 9:00 AM on March 19, 2020. The patient tolerated the procedure well and no immediate c omplications were evident. No imaging was requested. IMPRESSION: Successful left breast lymphoscintigraphy. ACT 112: Negative or not required by law. Electronically signed by: Torsten Diallo M.D. 03/19/2020 9:27 AM
--- NOTE | 2020-03-19 09:32 | History & Physical Report ---
Date of Service March 19, 2020 Assessment & Plan (1) Breast cancer, left: pt for needle loc Lt breast lumpectomy with sentinel lymph node bx she will require excision of nipple areolar complex [facility], observation Gen LMA anesthesia History of Present Illness Primary Care Provider: KENDRICK Mathis Pt with papillary carcinoma Lt breast Allergies Allergy/AdvReac Type Severity Reaction Status Date / Time AILYN Inhibitors Allergy Severe ANAPHYLAXIS Verified 03/13/20 09:50 metformin Allergy Severe swelling Verified 03/13/20 09:50 in lips and tongue, rash-AQNAPHYLAXIS morphine Allergy Severe ANAPHYLAXIS Verified 03/13/20 09:50 oxycodone Allergy Severe MIGRAINES Verified 03/13/20 09:50 amlodipine Allergy Intermediate ITCHING Verified 03/13/20 09:50 cefuroxime Allergy Intermediate ITCHING Verified 03/13/20 09:50 SWELLING gabapentin Allergy Intermediate ITCHY AND Verified 03/13/20 09:50 SWELLING losartan Allergy Intermediate rash, Verified 03/13/20 09:50 itching moxifloxacin Allergy Intermediate ITCHING Verified 03/13/20 09:50 SWELLING Penicillins Allergy Intermediate HIVES Verified 03/13/20 09:50 pregabalin Allergy Intermediate itchy AND Verified 03/13/20 09:50 SWELLS hydrochlorothiazide AdvReac Mild ITCHING/HIV Verified 03/13/20 09:50 ES naproxen AdvReac Mild INCREASES Verified 03/13/20 09:50 SWELLING [employer] Allergy Severe ITCHING Uncoded 03/13/20 09:50 AND HIVES WITH [employer] Home Medications Home Medications Medication Instructions Recorded Confirmed Type cholecalciferol (vitamin D3) 2,000 unit PO DAILY 06/16/18 03/13/20 History [Vitamin D3] esomeprazole magnesium [Nexium] 40 mg PO QAM 06/16/18 03/13/20 History furosemide [Lasix] 20 mg PO DAILY PRN 06/16/18 03/13/20 History multivitamin 1 tab PO DAILY 06/16/18 03/13/20 History nitroglycerin [Nitrostat] 1 dose SUBLINGUAL UD PRN 06/16/18 03/13/20 History cyclobenzaprine 10 mg tablet 10 mg PO TID PRN #30 tab 03/11/19 03/13/20 Rx atorvastatin 10 mg tablet 10 mg PO DAILY #30 tab 05/11/19 03/13/20 Rx imatinib 400 mg tablet 400 mg PO DAILY #30 tab 05/11/19 03/13/20 Rx atenolol 100 mg tablet 100 mg PO BID #180 tab 07/04/19 03/13/20 Rx blood sugar diagnostic #100 ea 09/12/19 02/17/20 Rx sucralfate [Carafate] 1 gm PO TID PRN 10/26/19 03/13/20 History dulaglutide 1.5 mg/0.5 mL 1.5 mg SUBCUT WK #2 ml 12/05/19 03/13/20 Rx subcutaneous pen injector ondansetron HCl 4 mg tablet 4 mg PO QID PRN #60 tab 12/05/19 03/13/20 Rx prednisone 40 mg PO BID PRN 12/06/19 03/13/20 History clonidine HCl 0.1 mg tablet 0.1 mg PO BID #180 tab 01/10/20 03/13/20 Rx cholecalciferol (vitamin D3) 1,250 50,000 units PO WEEKLY #8 tab 02/08/20 03/13/20 Rx mcg (50,000 unit) tablet hydrocodone 5 mg-acetaminophen 325 2 tab PO Q6H PRN #60 tab 03/05/20 03/13/20 Rx mg tablet alprazolam 0.5 mg tablet 0.5 mg PO BID PRN #60 tab 03/19/20 Rx Past Med/Surg History Medical History Actinic keratosis Allergic rhinitis (Acute) Anxiety Arthralgia of multiple joints (Acute) Cancer GIST (GASTRIC TUMOR) REMOVED 08/2018 AT [place] Chest pain [facility] CHRONIC CHEST PAIN SYNDROME X YEARS; S/P CARDIAC CATH (1999--no obstructive disease), DSE (2015 -- negative for ischemia) Deep vein thrombosis 1990 Depression (Acute) Diabetes mellitus, type 2 Diabetic foot ulcer Dyslipidemia (Acute) Esophageal reflux (Acute) Fibromyalgia GERD (gastroesophageal reflux disease) GIST, malignant s/p excision 2017 Gout (Acute) Herpes zoster (Resolved) Hx of endometriosis Hx of gastritis Hyperlipidemia Hypertension Multiple nevi (Acute) Obesity Osteoarthritis Peripheral neuropathy Peripheral vascular disease Psoriasis (Acute) PVCs (premature ventricular contractions) Seborrheic keratosis (Acute) Vitamin D deficiency (Acute) Surgical History Amputated toe LEFT SECOND TOE AMPUTATION D/T OSTEOMYELITIS Right 3rd toe 12-08-19 for osteomyelitis with diabetic toe ulcer Family history of reaction to anesthesia MOTHER AND SISTER-NAUSEA AND SLOW TO WAKE UP H/O basal cell carcinoma excision (Acute) History of amputation right third toe History of arthroscopy LEFT KNEE History of cardiac cath 1999= MINOR LUMINAL IRREGULARITIES History of cholecystectomy History of colonoscopy History of endoscopic gastrointestinal surgery ABDOMINAL TUMOR REMOVED History of esophagogastroduodenoscopy (EGD) History of hysterectomy partial History of surgery B/L VEIN STRIPPING History of tooth extraction History of total knee replacement LEFT TKA= 09/18/17= SAB X 1 ATTEMPT + PNB AT [facility] Family History Sister Ovarian cancer Grandfather Family history of esophageal cancer Mother Myocardial infarction Coronary heart disease Heart disease Hypertension Grandmother (Paternal) Diabetes Cancer Son Diabetes Type I Aunt Colorectal cancer maternal Unknown Breast cancer Grandfather (Paternal) Cancer Grandmother (Maternal) Diabetes Father Hypertension Denies family history of Prostate cancer Social History (Updated 02/17/20 @ 09:37 by Briana Fournier RN) Preferred Language: Micronesian Communication Ability: Effective Investigation Lieutenant Required: No Beliefs That Will Affect Care: None marital status: Current Living Situation: Spouse current occupational status: employed current occupation: RN Other Information That Helps Us Care for You: No Feels Safe at Home: Yes Safety Concerns: Feels Safe At This Time Smoking Status: Former smoker Tobacco Type: cigarettes ; packs per day: 0.5 ; Do You Dip or Chew Tobacco: No ; Smoking End Date: ~1994 ; Second Hand Exposure: Yes ( A CHILD) ; Tobacco Cessation Education Requested by Patient: No Hx Alcohol Use: Yes Alcohol type: wine and hard liquor Alcohol Intake Frequency: Holidays/Special Occasions Hx Substance Use: No Review of Systems All systems reviewed & are unremarkable except as noted in HPI & below Physical Exam Physical Exam: Lg Lt breast mass palpable Constitutional: well developed and well nourished; no acute distress Eyes: + anicteric sclerae Respiratory: normal respiratory effort; no respiratory distress Cardiovascular: Rate/Rhythm: regular rate Gastrointestinal (Abdomen): Percussion/Palpation: abdomen soft Musculoskeletal: Gait: normal gait Skin: no rashes, warm and dry Neurologic: awake Psychiatric: Orientation: alert
[2020-03-19] MEDS ORDERED: PROPOFOL IV EMULSION 10 MG/ML 20 ML VIAL IV ONE (10:01)
[2020-03-19] MEDS ORDERED: LIDOCAINE HCL 2% 2 ML VIAL/AMP(20MG/ML) INFIL ONE (10:01)
[2020-03-19] MEDS ORDERED: DEXAMETHASONE SOD INJ 4 MG/ML VIAL ONE (10:01)
[2020-03-19] MEDS ORDERED: ONDANSETRON INJ 2 MG/ML 2 ML VIAL ONE (10:01)
[2020-03-19] MEDS ORDERED: MIDAZOLAM HCL 1 MG/ML 2ML VIAL ONE (10:02)
[2020-03-19] MEDS ORDERED: fentaNYL citrate 100 MCG/2 ML VIAL ONE ×3 (10:02→13:24)
[2020-03-19] MEDS ORDERED: ONDANSETRON INJ 2 MG/ML 2 ML VIAL IV PRN ×2 (11:13→16:32)
[2020-03-19] MEDS ORDERED: ePHEDrine sulfate 50 MG/ML AMP IV PRN (11:13)
[2020-03-19] MEDS ORDERED: PROMETHAZINE HCL 6.25 MG in SODIUM CHLORIDE 0.9% 50 ML IV PRN (11:13)
[2020-03-19] MEDS ORDERED: ATROPINE SULFATE 0.1 MG/ML 10ML SYR IV PRN (11:13)
[2020-03-19] MEDS ORDERED: METHYLENE BLUE 0.5% 10 ML VIAL ONE (11:15)
[2020-03-19] MEDS ORDERED: ISOSULFAN BLUE 10 MG/ML VIAL 5 ML ONE (12:35)
[2020-03-19] MEDS ORDERED: BUPIVACAINE 0.5 % 5 MG/1 ML MPF 30ML VIAL ONE (12:35)
[2020-03-19] MEDS ORDERED: ACETAMINOPHEN 1,000 MG/100 ML VIAL IV STA (14:09)
--- NOTE | 2020-03-19 14:09 | Post Operative Brief Note ---
PG Immediate Post Op with CF Date of Surgery March 19, 2020 Pre & Post Diagnosis Operation Date: 03/19/20 12:10 Pre-Op Diagnosis: Left Breast Cancer Post-Op Diagnosis: Left Breast Cancer I identified the patient and participated in the time-out.: Yes Procedure Operation Date: 03/19/20 12:10 Actual Procedures p Left Breast Lumpectomy with Needle Localization and Left Mallory Lymph Node Biopsy(Left) - Hima Diehl MD, FACS Surgeon Hima Diehl MD, FACS Tube Backer Moses Freire Estimated Blood Loss 20 Findings Consistent with Post-Op Diagnosis Specimens Specimen Description: Fresh #1: Left sentinel lymph node #2: Left superior Breast Tissue, Needle with Long Silk is Lateral, Short silk is medial #3: Additional superior left breast tissue, long silk is lateral, short silk is medial #4: Additional inferior Left Breast Tissue, Long Slik is lateral, short silk is medial,methylene blue is marginal
--- NOTE | 2020-03-19 14:25 | Operative Report (OR) ---
DATE OF OPERATION: 03/19/2020 NAME OF OPERATION: Left lumpectomy with sentinel lymph node biopsy. PREOPERATIVE DIAGNOSIS: Large papillary cancer, left breast. POSTOPERATIVE DIAGNOSIS: Large papillary cancer, left breast. STAFF SURGEON: Hima Diehl MD. STEAK TENDERIZER MACHINE: Clovis Freire PA-C. ANESTHESIA: General. DESCRIPTION OF PROCEDURE: The patient was brought in the operating room and placed on the operating table in supine position. Her left breast and axilla were prepped and draped in usual fashion. Incision was made in the left axilla using 0.5% plain Marcaine to anesthetize skin and subcutaneous tissue, carrying dissection down using Neoprobe, identifying the sentinel lymph node, which was sent for frozen section. Frozen section was negative. During the frozen section, we performed lumpectomy. The tumor was retroareolar and laterally. It was at least 5 cm. We made an elliptical incision around the areola and over the tumor, taking the dissection down around the tumor and then marking it with the needle and a silk suture lateral. It was placed into the Faxitron. The mass was within the specimen. I took additional superior and inferior tissue around the area of the mass. It was marked with long silk suture lateral, short silk suture medial and then methylene blue new margin. We placed clips at the level of the tumor. Deep tissue was reapproximated using 0 chromic suture and then the skin reapproximated using subcuticular 4-0 Monocryl with Steri-Strips. Dressing applied and patient was transferred to recovery room in stable condition. My service center assistant helped with prepping, draping, excision of the breast tissue, lymph nodes and closure of the wound. I attest to the content of the Intraoperative Record and any orders documented therein. Any exception s are noted below.
[2020-03-19] MEDS ORDERED: METHYLENE BLUE 0.5% 10 ML VIAL TOP SCH (14:30)
[2020-03-19] MEDS: fentaNYL citrate 100 MCG/2 ML VIAL IV PRN ×2 (14:50→14:55)
--- NOTE | 2020-03-19 15:27 | Mammography Report ---
NEEDLE LOCALIZATION LEFT BREAST: 03/19/2020 CLINICAL HISTORY: 64-year-old woman with recent biopsy-proven solid papillary carcinoma of the left b reast. She presents for preoperative needle and wire localization prior to lumpectomy. COMPARISON: Comparison is made to exams dated: 02/07/2020 mammogram, 02/24/2020 breast MRI, 02/03/2020 m ammogram, 02/03/2020 ultrasound, and 07/14/2019 mammogram - [facility]. PATIENT CONSENT: The risks of the procedure were explained to the patient and informed consent was ob tained both verbally and in writing. Specific risks include: Bleeding, infection, puncture of adjace nt structure, dizziness/lightheadedness, nontarget localization, sampling error and medication reacti on. PROCEDURE DESCRIPTION: Prior breast imaging exams were reviewed including: Left diagnostic mammograms and ultrasound 02/03/2020, ultrasound-guided core biopsy of the left breast February 07, 2020, and recent breast MRI. The multilobulated solid mass extending throughout the left lateral breast approximate 2 :00 through 4:00 axes also involving the nippleareola complex is the intended target for localizatio n. With the patient in the supine position, slightly angled in right lateral decubitus position with left arm extended, the skin of the left breast was cleansed with Betadine and sterile drapes were pl aced. While visualizing the lateral/distal portion of the conglomerate mass with ultrasound, 1% buff ered Lidocaine without epinephrine was administered as local anesthesia. A 7.5cm Jimenez II needle an d wire combination was inserted into the breast, directed deep and towards the nipple. Optimal positi oning was confirmed and the wire was locked in place, leaving both the needle and wire within the darlyn ast, as per surgeon's preference. Post ultrasound localization left CC and MLO 2D and tomosynthesis images were performed the localizing needle is located just superior and posterior to the ribbon-shap ed biopsy marker and it is located 3 cm proximal to the tip of the needle. The entire procedure incl uding approach and needle length were discussed with the operating surgeon prior to surgery. The pat ient tolerated the procedure well and there was no immediate complication. She was transported to [facility] operating room in satisfactory condition. A specimen radiograph was obtained which contains the localizing needle and wire, ribbon-shaped biops y marker and lobulated density within the tissue specimen, compatible with successful preoperative lo calization and subsequent surgical excision. Final surgical pathology is pending. IMPRESSION: NEEDLE LOCALIZATION Status post preoperative needle and wire localization for biopsy-proven solid papillary carcinoma in the 3:00 left breast. The imaged specimen includes the intended abnormality. Final surgical patholo gy is pending. Aide Berry M.D. ay/:03/19/2020 15:04:48 Firearms Instructor: RT Tawanna,R, M, [facility]; OR Technologist, [facility]
--- NOTE | 2020-03-19 15:55 | Anesthesiology Progress Note ---
Date of Service March 19, 2020 Anesthesia Post Procedure Vital Signs Vital Signs: Temp Pulse Pulse Resp BP BP Pulse Ox 03/19/20 15:45 77 16 155/68 H 95 03/19/20 15:35 36.5 C 80 16 154/84 H 95 03/19/20 15:20 75 16 156/85 H 97 03/19/20 15:10 77 16 144/92 H 100 03/19/20 15:00 77 16 138/85 100 03/19/20 14:50 36.3 C L 76 16 146/90 H 100 03/19/20 14:40 77 16 137/63 100 03/19/20 14:30 77 14 138/75 100 03/19/20 14:23 36.0 C L 79 19 151/90 H 99 03/19/20 09:52 36.6 C 71 18 144/75 H 96 Pain Intensity Left Breast: Pain Intensity: 6 Transfer of Care Handoff Completed per policy Notes Mental Status: alert / awake / arousable Patient Amnestic to Procedure: Yes Nausea / Vomiting: adequately controlled Pain: adequately controlled Airway Patency, RR, SpO2: stable & adequate BP & HR: stable & adequate Hydration State: stable & adequate Anesthetic Complications: no major complications apparent
[2020-03-19] MEDS ORDERED: KETOROLAC 30 MG/ML VIAL ONE (16:00)
[2020-03-19] MEDS ORDERED: HYDROCODONE/ACETAMOPHEN 5/325MG TAB PO PRN (16:32)
[2020-03-19] MEDS ORDERED: SODIUM CHLORIDE 0.9% 1000ML 1,000 ML IV SCH (16:32)
[2020-03-19] MEDS ORDERED: PROMETHAZINE HCL 12.5 MG in SODIUM CHLORIDE 0.9% 50 ML IV PRN (16:32)
[2020-03-19] MEDS ORDERED: HYDROmorphone INJ 0.5 MG/0.5 ML SYR IV PRN (16:32)
[2020-03-19] MEDS ORDERED: ACETAMINOPHEN 325 MG TAB PO PRN (16:32)
[2020-03-19] MEDS ORDERED: HYDROmorphone INJ 1 MG/ML SYRINGE IV PRN (16:32)
[2020-03-19] MEDS ORDERED: ALPRAZolam 0.5 MG TABLET PO PRN (16:32)
[2020-03-19] MEDS: HYDROCODONE/ACETAMOPHEN 5/325MG TAB PO PRN ×2 (17:07→23:00)
[2020-03-19] MEDS ORDERED: CARBOHYDRATES FOR HYPOGLYCEMIA PO PRN (18:44)
[2020-03-19] MEDS ORDERED: GLUCAGON FOR INJ 1 MG VIAL SQ PRN (18:44)
[2020-03-19] MEDS ORDERED: GLUCOSE 10 TABS/TUBE PO PRN (18:44)
[2020-03-19] MEDS ORDERED: GLUCOSE 40% GEL 15 GM TUBE PO PRN (18:44)
[2020-03-19] MEDS ORDERED: DEXTROSE 50% 50 ML SYRINGE IV PRN (18:44)
--- NOTE | 2020-03-19 18:49 | Hospitalist Consultation ---
Date of Consultation March 19, 2020 Assessment & Plan (1) Breast cancer, left: * POD #0 s/p Left lumpectomy with sentinel lymph node biopsy with Dr. Diehl. Pre-op h/h 14.2/41.9 * PT/OT/Pain management/DVT prophylaxis per primary service * Clinda IV for prophylaxis * CBC in AM (2) Hypertension: * Chronic. Stable * BP 121/75 * Continue home atenolol 100mg BID, clonidine 0.1mg BID (3) DM (diabetes mellitus), type 2 with neurological complications: * with neuropathy * Hold trulicity while inpatient * ISS * BSG ACHS * Continue to monitor (4) Gastrointestinal stromal tumor (GIST): * Resected 2018 at [place] * had been following with Dr. Merrill, but recently seen by locum provider * Would recommend resuming Gleevec -- patient brought with her --> if she stays past tomorrow morning will send down to pharmacy to have relabeled (5) Anxiety: * Stable * Continue xanax BID prn (6) Arthritis: * Chronic. Continue home meds (7) Vitamin D deficiency: * Continue patient's 50,000IU weekly -- per her report, most recent Vit D level low at 14 (8) Esophageal reflux: * Protonix substituted for omeprazole while inpatient (9) Dyslipidemia: * Continue home atorvastatin -- per patient, she has had some increased cramping since starting the Gleevec and has occasionally missed a dose of her statin. She states her cholesterol is usually ~200-220. No hx OK/CVA (10) DVT prophylaxis: * SCDs Thank you for allowing the hospitalist team to participate in the care of Mrs. Silva. Hospitalist service will follow along. Supervising Physician Co-Signing Physician Notes PA Supervision Note: I personally saw and examined the patient. I verified all tsang points and agree with PALMA Vincent with the following exceptions and/or additions: Pt doing well post-op, pain controlled. Denies CP or SOB, no nausea. History and ROS reviewed as above VSS Obese, NAD RRR no mgr CTAB no wcr Chest with dresssing not removed Abd +BS soft NT ND Ext no edema 64 yo female here with left breast lumpectomy and sentinel LN biopsy. Continue current medications -follow CBC< BMP in AM History of Present Illness Reason for Consultation: Medical Management Requesting Physician: Dr Diehl Attending Physician: Hima Diehl MD, FACS History of Present Illness 64 year old female with PMHx significant for GIST, HTN, HLD, DM with neuropathy, PVD, reflux, anxiety, obesity, OA, fibromyalgia presented for left breast lumpectomy and sentinel node biopsy by Dr. Diehl. Patient has been eating/drinking without difficulty following procedure. States significant pain to left breast through her back, rated 7-8/10 with recent administration of 2 [place]. Recently had been diagnosed in 2018 with GIST, on Gleevec and follows with oncology. She states she most recently noted blood in her bra that prompted further evaluation. Family history of ovarian cancer with of sister in her late 40s. She confirms that she did have a cousin with breast cancer but no other known family history of breast cancer. She states she is to begin a new medication for breast/GIST but is unsure of the name and had questions for her oncologist regarding taking both together or if she will need further chemo for the breast findings. Allergies Allergy/AdvReac Type Severity Reaction Status Date / Time AILYN Inhibitors Allergy Severe ANAPHYLAXIS Verified 03/19/20 09:46 metformin Allergy Severe swelling Verified 03/19/20 09:46 in lips and tongue, rash-AQNAPHYLAXIS morphine Allergy Severe ANAPHYLAXIS Verified 03/19/20 09:46 oxycodone Allergy Severe MIGRAINES Verified 03/19/20 09:46 amlodipine Allergy Intermediate ITCHING Verified 03/19/20 09:46 cefuroxime Allergy Intermediate ITCHING Verified 03/19/20 09:46 SWELLING gabapentin Allergy Intermediate ITCHY AND Verified 03/19/20 09:46 SWELLING losartan Allergy Intermediate rash, Verified 03/19/20 09:46 itching moxifloxacin Allergy Intermediate ITCHING Verified 03/19/20 09:46 SWELLING Penicillins Allergy Intermediate HIVES Verified 03/19/20 09:46 pregabalin Allergy Intermediate itchy AND Verified 03/19/20 09:46 SWELLS hydrochlorothiazide AdvReac Mild ITCHING/HIV Verified 03/19/20 09:46 ES naproxen AdvReac Mild INCREASES Verified 03/19/20 09:46 SWELLING [employer] Allergy Severe ITCHING Uncoded 03/19/20 09:46 AND HIVES WITH [employer] Home Medications Home Medications Medication Instructions Recorded Confirmed Type cholecalciferol (vitamin D3) 2,000 unit PO DAILY 06/16/18 03/19/20 History [Vitamin D3] esomeprazole magnesium [Nexium] 40 mg PO QAM 06/16/18 03/19/20 History furosemide [Lasix] 20 mg PO DAILY PRN 06/16/18 03/19/20 History multivitamin 1 tab PO DAILY 06/16/18 03/19/20 History nitroglycerin [Nitrostat] 1 dose SUBLINGUAL UD PRN 06/16/18 03/19/20 History cyclobenzaprine 10 mg tablet 10 mg PO TID PRN #30 tab 03/11/19 03/19/20 Rx atorvastatin 10 mg tablet 10 mg PO DAILY #30 tab 05/11/19 03/19/20 Rx imatinib 400 mg tablet 400 mg PO DAILY #30 tab 05/11/19 03/19/20 Rx atenolol 100 mg tablet 100 mg PO BID #180 tab 07/04/19 03/19/20 Rx blood sugar diagnostic #100 ea 09/12/19 02/17/20 Rx sucralfate [Carafate] 1 gm PO TID PRN 10/26/19 03/19/20 History dulaglutide 1.5 mg/0.5 mL 1.5 mg SUBCUT WK #2 ml 12/05/19 03/19/20 Rx subcutaneous pen injector ondansetron HCl 4 mg tablet 4 mg PO QID PRN #60 tab 12/05/19 03/19/20 Rx prednisone 40 mg PO BID PRN 12/06/19 03/19/20 History clonidine HCl 0.1 mg tablet 0.1 mg PO BID #180 tab 01/10/20 03/19/20 Rx cholecalciferol (vitamin D3) 1,250 50,000 units PO WEEKLY #8 tab 02/08/20 03/19/20 Rx mcg (50,000 unit) tablet hydrocodone 5 mg-acetaminophen 325 2 tab PO Q6H PRN #60 tab 03/05/20 03/19/20 Rx mg tablet alprazolam 0.5 mg tablet 0.5 mg PO BID PRN #60 tab 03/19/20 03/19/20 Rx Patient History Medical History Actinic keratosis Allergic rhinitis (Acute) Anxiety Arthralgia of multiple joints (Acute) Cancer GIST (GASTRIC TUMOR) REMOVED 08/2018 AT [place] Chest pain syndrome CHRONIC CHEST PAIN SYNDROME X YEARS; S/P CARDIAC CATH (1999--no obstructive disease), DSE (2015 -- negative for ischemia) Deep vein thrombosis 1990 Diabetes mellitus, type 2 Diabetic foot ulcer Dyslipidemia (Acute) Esophageal reflux (Acute) Fibromyalgia GERD (gastroesophageal reflux disease) GIST, malignant s/p excision 2017 Gout (Acute) Herpes zoster (Resolved) Hx of endometriosis Hx of gastritis Hyperlipidemia Hypertension Multiple nevi (Acute) Obesity Osteoarthritis Peripheral neuropathy Peripheral vascular disease Psoriasis (Acute) PVCs (premature ventricular contractions) Seborrheic keratosis (Acute) Vitamin D deficiency (Acute) Surgical History Amputated toe LEFT SECOND TOE AMPUTATION D/T OSTEOMYELITIS Right 3rd toe 12-08-19 for osteomyelitis with diabetic toe ulcer Family history of reaction to anesthesia MOTHER AND SISTER-NAUSEA AND SLOW TO WAKE UP H/O basal cell carcinoma excision (Acute) History of amputation right third toe History of arthroscopy LEFT KNEE History of cardiac cath 1999= MINOR LUMINAL IRREGULARITIES History of cholecystectomy History of colonoscopy History of endoscopic gastrointestinal surgery ABDOMINAL TUMOR REMOVED History of esophagogastroduodenoscopy (EGD) History of hysterectomy partial History of surgery B/L VEIN STRIPPING History of tooth extraction History of total knee replacement LEFT TKA= 09/18/17= SAB X 1 ATTEMPT + PNB AT [facility] Status post left breast lumpectomy (03/19/20) Left lumpectomy with sentinel lymph node biopsy. Dr. Diehl 03/19/20 Family History (Updated 03/19/20 @ 18:35 by Gisella Vincent PA-C) Sister Ovarian cancer Grandfather Family history of esophageal cancer Mother Myocardial infarction Coronary heart disease Heart disease Hypertension Grandmother (Paternal) Diabetes Cancer Son Diabetes Type I Aunt Colorectal cancer maternal Unknown Breast cancer Grandfather (Paternal) Cancer Grandmother (Maternal) Diabetes Father Hypertension Family/Other Breast cancer Denies family history of Prostate cancer Social History Preferred Language: Greek Communication Ability: Effective Electrotype Servicer Required: No Beliefs That Will Affect Care: None marital status: Current Living Situation: Spouse current occupational status: employed current occupation: RN Other Information That Helps Us Care for You: No Feels Safe at Home: Yes Safety Concerns: Feels Safe At This Time Smoking Status: Former smoker Tobacco Type: cigarettes ; packs per day: 0.5 ; Do You Dip or Chew Tobacco: No ; Smoking End Date: ~1994 ; Second Hand Exposure: Yes ( A CHILD) ; Tobacco Cessation Education Requested by Patient: No Hx Alcohol Use: Yes Alcohol type: wine and hard liquor Alcohol Intake Frequency: Holidays/Special Occasions Hx Substance Use: No Review of Systems Constitutional: + weight gain; no fever and no chills Eyes: no diplopia and no problem reported Ear, Nose, Mouth, Throat: no sore throat and no dysphagia Respiratory: no cough and no dyspnea Cardiovascular: no chest pain and no palpitations Gastrointestinal: diarrhea from gleevac Genitourinary: no dysuria and no hematuria Musculoskeletal: no radicular pain and no stiffness Integumentary: no rash and no lesions Neurologic: neuropathy, but unable to tolerate gabapentin or lyrica Psychiatric: + anxiety; no depression Endocrine: + fatigue Hematologic / Lymphatic: no coagulopathy and no lymphadenopathy Allergy / Immunological: no cough and no dyspnea Physical Exam Constitutional: WD/WN, vitals as above + obese; no acute distress Eyes: + anicteric sclerae and PERRL ENMT: dry mm Neck: trachea midline, no thyromegaly Respiratory: normal respiratory effort; no labored breathing Auscultation: + diminished lung sounds and + crackles (bibasilar); no wheezes Cardiovascular: RRR, no murmur, no edema Chest (Breasts): Additional Comments: dressing to LEFT breast c/d/i, steri- strips with covering no drainage Gastrointestinal (Abdomen): normal bowel sounds, soft, nontender, no hepatosplenomegaly Musculoskeletal: no cyanosis or clubbing, extremities motor strength 5/5 Skin: no rashes, warm and dry Neurologic: PERRL, EOMI, accommodation nl, no face palsy, no dysarthria Psychiatric: A+Ox3, euthymic affect Lymphatic: no cervical or axillary lymphadenopathy Results & Data Results & Data ([facility]) Vital Signs (Past 12 Hours) Vital Signs Temp Pulse Pulse Resp BP BP Pulse Ox 03/19/20 17:38 36.9 C 83 17 135/80 94 03/19/20 17:02 36.8 C 77 17 135/78 94 03/19/20 16:15 78 15 133/68 95 03/19/20 16:00 73 16 151/86 H 94 03/19/20 15:45 77 16 155/68 H 95 03/19/20 15:35 36.5 C 80 16 154/84 H 95 03/19/20 15:20 75 16 156/85 H 97 03/19/20 15:10 77 16 144/92 H 100 03/19/20 15:00 77 16 138/85 100 03/19/20 14:50 36.3 C L 76 16 146/90 H 100 03/19/20 14:40 77 16 137/63 100 03/19/20 14:30 77 14 138/75 100 03/19/20 14:23 36.0 C L 79 19 151/90 H 99 03/19/20 09:52 36.6 C 71 18 144/75 H 96 Laboratory Results 03/19/20 03/19/20 Range/Units 14:28 09:30 POC Glucose 115 H 139 H (70-99) mg/dl Diagnostic Findings Left Breast Lymphoscintigraphy IMPRESSION: Successful left breast lymphoscintigraphy. PG Care Time/CCT Total # of Minutes Spent Total Time Spent with Patient: Total time spent is greater than 50% in coordination of care (as documented) at patient's floor/unit and/or counseling patient: Coding Level of Care Code 35798 Inpt Consult Level 3 Diagnoses Breast cancer, left C50.912 Hypertension I10 DM (diabetes mellitus), type 2 with neurological complications E11.49 Gastrointestinal stromal tumor (GIST) C49.A0 Anxiety F41.9 Arthritis M19.90 Vitamin D deficiency E55.9 Esophageal reflux K21.9 Dyslipidemia E78.5 DVT prophylaxis Z29.9
[2020-03-19] MEDS: CLINDAMYCIN 900 MG in DEXTROSE 5% 100 ML IV SCH (19:45)
[2020-03-19] MEDS: KETOROLAC TROMETHAMINE 15 MG/ML VIAL IV PRN (20:12)
[2020-03-19] MEDS: cloNIDine HCL 0.1 MG TAB PO SCH (20:19)
[2020-03-19] MEDS: ATENOLOL 50 MG TABLET PO SCH (20:19)
[2020-03-19] MEDS: INSULIN ASPART 100 UNITS/ML 3 ML PEN SC SCH (20:51)
[2020-03-20] MEDS: KETOROLAC TROMETHAMINE 15 MG/ML VIAL IV PRN (03:52)
[2020-03-20] MEDS: CLINDAMYCIN 900 MG in DEXTROSE 5% 100 ML IV SCH (04:20)
[2020-03-20 07:01] VITALS: BP 112/70; PULSE 75; TEMP 97.7; O2SAT 96
[2020-03-20] MEDS: HYDROCODONE/ACETAMOPHEN 5/325MG TAB PO PRN (08:14)
[2020-03-20] MEDS: ATENOLOL 50 MG TABLET PO SCH (08:15)
[2020-03-20] MEDS: cloNIDine HCL 0.1 MG TAB PO SCH (08:15)
[2020-03-20] MEDS: INSULIN ASPART 100 UNITS/ML 3 ML PEN SC SCH (08:44)
[2020-03-20] MEDS ORDERED: ATORVASTATIN 10 MG TAB PO SCH (09:00)
[2020-03-20] MEDS ORDERED: PANTOprazole 40 MG TAB PO SCH (09:00)
[2020-03-20] MEDS ORDERED: bisacodyL 10 MG SUPP PR ONE (09:00)
--- NOTE | 2020-03-20 15:09 | Discharge Summary (DS) ---
PRINCIPAL DIAGNOSIS: Papillary cancer, left breast. PROCEDURES: The patient underwent left breast lumpectomy with sentinel lymph node biopsy. HISTORY OF PRESENT ILLNESS: The patient is a 64-year-old female with a history of left breast papillary cancer for definitive surgery. She was brought into the hospital on 03/19/2020 where she underwent left lumpectomy with left sentinel lymph node biopsy, which she tolerated very well. She has done well overnight. She is stable this morning and is felt stable for discharge home to be seen in the clinic next week.
== END 2020-03-20 09:18 | disposition home or self-care (01) ==
LOC: ASU 07:55 → 3W 07:55

== ENCOUNTER 2022-08-18 06:24 | Observation (INO) ==
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
[~2022-08-18 06:24] MED LIST changes: +CLINDA 900 MG **Premixed Bag IV SCH; -CLINDAMYCIN 900 MG in DEXTROSE 5% 50 ML IV SCH
[2022-08-18] MEDS ORDERED: MIDAZOLAM HCL 1 MG/ML 2ML VIAL ONE (07:24)
[2022-08-18] MEDS ORDERED: fentaNYL citrate 100 MCG/2 ML VIAL ONE ×2 (07:24→11:36)
[2022-08-18] MEDS ORDERED: BUPIVACAINE 0.5 % 5 MG/1 ML MPF 30ML VIAL ONE ×2 (08:22→09:33)
[2022-08-18] MEDS ORDERED: METHYLENE BLUE 0.5% 10 ML VIAL ONE (08:22)
[2022-08-18] MEDS ORDERED: fentaNYL citrate 100 MCG/2 ML VIAL IV PRN (08:25)
[2022-08-18] MEDS ORDERED: ePHEDrine sulfate 50 MG/ML AMP IV PRN (08:25)
[2022-08-18] MEDS ORDERED: ATROPINE SULFATE 0.1 MG/ML 10ML SYR IV PRN (08:25)
[2022-08-18] MEDS ORDERED: ONDANSETRON INJ 2 MG/ML 2 ML VIAL IV PRN ×2 (08:25→15:23)
[2022-08-18] MEDS ORDERED: PROMETHAZINE HCL 12.5 MG in SODIUM CHLORIDE 0.9% 50 ML IV PRN ×2 (08:25→15:23)
[2022-08-18] MEDS ORDERED: ACETAMINOPHEN 1000 MG/100 ML IV IV ONE (08:49)
[2022-08-18] MEDS ORDERED: ISOSULFAN BLUE 10 MG/ML VIAL 5 ML ONE (09:13)
[2022-08-18] MEDS ORDERED: DEXAMETHASONE SOD INJ 4 MG/ML VIAL ONE (09:18)
[2022-08-18] MEDS ORDERED: LIDOCAINE 2% 2 ML VIAL/AMP(20MG/ML) INFIL ONE (09:18)
[2022-08-18] MEDS ORDERED: PROPOFOL IV EMULSION 10 MG/ML 20 ML VIAL IV ONE (09:18)
[2022-08-18] MEDS ORDERED: ePHEDrine sulfate 50 MG/ML SYR ONE (09:18)
[2022-08-18] MEDS ORDERED: ROCURONIUM BROMIDE 10 MG/ML 5 ML VIAL IV ONE (09:18)
[2022-08-18] MEDS ORDERED: ONDANSETRON INJ 2 MG/ML 2 ML VIAL ONE (09:18)
[2022-08-18] MEDS ORDERED: KETOROLAC 30 MG/ML VIAL ONE (09:33)
[2022-08-18] MEDS ORDERED: GLYCOPYRROLATE 0.2 MG/ML VIAL ONE (09:46)
--- NOTE | 2022-08-18 10:39 | Nuclear Medicine Report ---
LYMPHOSCINTIGRAPHY CLINICAL HISTORY: Left breast cancer. PROCEDURE: Using standard sterile technique, 4 intradermal injections in the central breast and one d eep injection of 503.97 uCi of Lymphoseek was placed in the left breast. The patient tolerated the pr ocedure well. There were no immediate complications. The patient was subsequently transported to the surgical suite. No imaging was obtained at the referring physician's request. IMPRESSION: Injection of 503.97 uCi of Lymphoseek in the left breast. ACT 112: Negative or not required by law. Electronically signed by: Hardeep Story M.D. 08/18/2022 10:37 AM
--- NOTE | 2022-08-18 10:40 | Nuclear Medicine Report ---
LYMPHOSCINTIGRAPHY CLINICAL HISTORY: Right breast cancer. PROCEDURE: Using standard sterile technique, 4 intradermal periareolar and one deep injection of 521. 27 uCi of Lymphoseek was placed in the right breast. The patient tolerated the procedure well. There were no immediate complications. The patient was subsequently transported to the surgical suite. No i maging was obtained at the referring physician's request. IMPRESSION: Injection of 521.27 uCi of Lymphoseek in the right breast. ACT 112: Negative or not required by law. Electronically signed by: Hardeep Story M.D. 08/18/2022 10:38 AM
--- NOTE | 2022-08-18 12:09 | Post Operative Brief Note ---
PG Immediate Post Op with CF Date of Surgery August 18, 2022 Pre & Post Diagnosis Operation Date: 08/18/22 08:50 Pre-Op Diagnosis: Recurrent cancer of left breast Post-Op Diagnosis: Recurrent cancer of left breast I identified the patient and participated in the time-out.: Yes Procedure Operation Date: 08/18/22 08:50 Actual Procedures p Bilateral Mastectomy with [place] Lymph Node Biopsy(Bilateral) - Hima Diehl MD, FACS Left axilla is a redo operation Surgeon Hima Diehl MD, FACS Print Machine Operator salvador horner Estimated Blood Loss 20 Findings Consistent with Post-Op Diagnosis Scar tissue left axilla, some scarring left breast status post lumpectomy and radiation Specimens Specimen Description: a. right sentinel lymph node-sent fresh 0851 B. Right breast tissue, silk lateral-sent fresh 1029 C. Left sentinel lymph node (sent fresh at 1123) D. Left axillary tissue (sent at 1123) E. Left breast tissue, silk lateral (Sent fresh at 1145) Drains Reese-Tobin Drain (During procedure Dr. Diehl inserted 15 scottish Reese-tobin drains into bilateral breasts)
[2022-08-18] MEDS ORDERED: ACETAMINOPHEN 1,000 MG/100 ML VIAL IV ONE (12:15)
[2022-08-18] MEDS: HYDROmorphone INJ 2 MG/ML SYR/VIAL IV PRN ×3 (13:16→13:35)
[2022-08-18] MEDS ORDERED: PROMETHAZINE HCL INJ 25 MG/ML 1 ML VIAL ONE (14:32)
[2022-08-18] MEDS ORDERED: SODIUM CHLORIDE 0.9% 50 ML BAG ONE (14:32)
--- NOTE | 2022-08-18 14:32 | Anesthesiology Progress Note ---
Date of Service August 18, 2022 Anesthesia Post Procedure Vital Signs Vital Signs: Temp Pulse Pulse Resp BP BP Pulse Ox 08/18/22 14:30 85 22 126/78 96 08/18/22 14:15 83 20 120/88 97 08/18/22 14:00 83 22 138/81 97 08/18/22 13:45 36.2 C L 85 14 135/73 97 08/18/22 13:35 85 19 141/79 H 95 08/18/22 13:25 85 15 137/89 92 08/18/22 13:15 81 14 144/82 H 97 08/18/22 13:05 84 18 127/81 93 08/18/22 12:55 87 12 146/73 H 94 08/18/22 12:45 88 13 127/85 97 08/18/22 12:35 86 13 139/86 98 08/18/22 12:25 36.0 C L 89 18 141/85 H 98 08/18/22 06:53 36.7 C 74 18 113/68 97 O2 Del Method O2 Flow Rate 08/18/22 14:30 Room Air 08/18/22 14:15 Room Air 08/18/22 14:00 Room Air 08/18/22 13:45 Room Air 08/18/22 13:35 Room Air 08/18/22 13:25 Room Air 08/18/22 13:15 Room Air 08/18/22 13:05 Room Air 08/18/22 12:55 Room Air 08/18/22 12:45 Room Air 08/18/22 12:35 Oxymask 9 08/18/22 12:25 Oxymask 9 08/18/22 06:53 Room Air Pain Intensity Left Chest: Pain Intensity: 3 Transfer of Care Handoff Completed per policy Notes Mental Status: alert / awake / arousable and participated in evaluation Patient Amnestic to Procedure: Yes Nausea / Vomiting: adequately controlled Pain: adequately controlled and improving with treatment Airway Patency, RR, SpO2: stable & adequate BP & HR: stable & adequate Hydration State: stable & adequate Anesthetic Complications: no major complications apparent and Pt Satisfied with anesthetic care
[2022-08-18] MEDS ORDERED: LACTATED RINGER'S 1,000 ML IV SCH (15:23)
[2022-08-18] MEDS ORDERED: ACETAMINOPHEN 1,000 MG/100 ML VIAL IV PRN (15:23)
--- NOTE | 2022-08-18 16:37 | Operative Report (OR) ---
DATE OF OPERATION: 08/18/2022 NAME OF OPERATION: Bilateral mastectomies with bilateral sentinel lymph node biopsies. STAFF SURGEON: Hima Diehl MD PARTS FACILITATOR: Marquita Fuentes. ANESTHESIA: General. DESCRIPTION OF PROCEDURE: The patient was brought in the operating room and placed on the operating table in supine position. Her arms were extended onto the arm boards. A roll was placed under her s houlders. Her chest and axilla bilaterally were prepped and draped in the usual fashion. Right side was addressed first. She had recurrent cancer on the left side with prior sentinel lymph node biops y and lumpectomy, also radiation on the left side. Right axilla was approached. Marcaine 0.5% plain was used to anesthetize all incisions. Incision was made in the right axilla carrying dissection do wn very deep using the Neoprobe finding the sentinel nodes, sending them for routine pathology. This wound was closed using 2-0 plain for the deep tissue and 4-0 nylon for the skin. Right breast was ap proached. Elliptical incision was made around the nipple areolar complex from medial to lateral. Th en, the breast tissue was dissected away from the subcutaneous tissue constructing superior and infer ior chest wall flaps, dissecting the tissue away from the pectoralis major muscle. Vessels were liga deepti using 0 chromic and 2-0 chromic suture. The site was irrigated. A 15 round Reese-Holliday drain placed into the chest wound, secured using 3-0 nylon suture. Subcutaneous tissue reapproximated usin g 3-0 Vicryl suture. Then, the skin reapproximated using subcuticular 4-0 Monocryl with Steri-Strips . Left side was then approached. Incision was made through previous scar tissue in the left axilla carrying dissection down through scar tissue. I did try to use some blue dye, but was unable to iden tify any in the left axilla. I did have a signal with the Neoprobe and was able to find at least 1 l ymph node. I was somewhat concerned about dissecting further in that the patient's risk of lymphedem a would be high. The tissue in the axilla. Left axilla was sent as a sentinel lymph node and then a dditional left axillary tissue. This wound was closed using 2-0 plain for the deep tissue and 4-0 ny crista for the skin. We then made an elliptical incision in the left breast area. She had had previous nipple areolar complex removed. An elliptical incision was made from medial to lateral, dissecting the breast tissue away from the subcutaneous tissue, constructing superior and inferior breast flaps, and then dissecting the breast tissue away from the pectoralis major muscle. Again, vessels were li gated as before. The 15 round Reese-Holliday drain placed into the chest wound and also into the axil la, secured using 3-0 nylon suture. Subcutaneous tissue reapproximated using 3-0 Vicryl suture and t hen the skin reapproximated using subcuticular 4-0 Monocryl with Steri-Strips. Dressings applied. P marianela was transferred to recovery room in stable condition. My economic research assistant helped with prepping, draping, mastectomy, sentinel lymph node biopsies, and closure of the wounds. Job ID: [id number]
[2022-08-18] MEDS ORDERED: DEXTROSE 50% 50 ML SYRINGE IV PRN (16:45)
[2022-08-18] MEDS ORDERED: GLUCOSE 40% GEL 15 GM TUBE PO PRN (16:45)
[2022-08-18] MEDS ORDERED: GLUCAGON FOR INJ 1 MG VIAL SQ PRN (16:45)
[2022-08-18] MEDS ORDERED: GLUCOSE 10 TAB/TUBE PO PRN (16:45)
[2022-08-18] MEDS ORDERED: PHARMACY GLYCEMIC MGMT CONSULT PRN (16:45)
[2022-08-18] MEDS ORDERED: CARBOHYDRATES FOR HYPOGLYCEMIA PO PRN (16:45)
[2022-08-18] MEDS: HYDROmorphone INJ 0.5 MG/0.5 ML SYR IV PRN (16:46)
[2022-08-18] MEDS: CLINDAMYCIN/D5W 600 MG/50 ML BAG IV SCH ×2 (16:47→21:43)
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
[2022-08-18] MEDS: HYDROCODONE/ACETAMOPHEN 5/325MG TAB PO PRN ×2 (17:17→21:52)
[2022-08-18] MEDS ORDERED: BACLOFEN 10 MG TAB PO PRN (20:28)
[2022-08-18] MEDS ORDERED: ALBUTEROL HFA 8 GM INHALER INH PRN ×2 (20:28→20:45)
[2022-08-18] MEDS ORDERED: FLUTICASONE/VILANTEROL 200/25MCG 14 PUFFS/INHALER INH PRN (20:28)
[2022-08-18] MEDS ORDERED: NITROGLYCERIN SL 0.4 MG/TAB TAB SL PRN (20:28)
[2022-08-18] MEDS ORDERED: ONDANSETRON 4 MG OD TAB PO PRN (20:59)
[2022-08-18] MEDS: BETAMETHASONE DIP AUG 0.05% OINT 15 GM TUBE EXT SCH (21:38)
[2022-08-18] MEDS: INSULIN ASPART PER UNIT SC SCH (21:42)
[2022-08-18] MEDS: ATENOLOL 50 MG TABLET PO SCH (21:55)
[2022-08-18] MEDS: cloNIDine HCL 0.1 MG TAB PO SCH (21:55)
[2022-08-19] MEDS: HYDROmorphone INJ 0.5 MG/0.5 ML SYR IV PRN (01:19)
[2022-08-19] MEDS: HYDROCODONE/ACETAMOPHEN 5/325MG TAB PO PRN ×2 (05:19→09:52)
--- NOTE | 2022-08-19 06:59 | Surgery Progress Note ---
Date of Service August 19, 2022 Assessment & Plan (1) Status post bilateral mastectomy: Plan: Also bilateral sentinel lymph node biopsy Patient with history of recurrent left breast cancer Doing very well Drainage output expected right greater than left Pain seems to be controlled with p.o. pain medication She would like to be discharged home-I feel this would be appropriate Will see in the office next week Discharge home with drains Admission and Anticipated Discharge Date Admission Date: August 18, 2022 Results & Data ([facility]) Vital Signs (Past 12 Hours) Vital Signs Temp Pulse Resp BP Pulse Ox O2 Del Method 08/19/22 01:11 37 C 73 18 134/83 97 Room Air 08/18/22 20:38 37 C 67 16 108/68 95 Room Air PG Care Time/CCT Total # of Minutes Spent Total Time Spent with Patient: Total time spent is greater than 50% in coordination of care (as documented) at patient's floor/unit and/or counseling patient: Coding Level of Care Code None Diagnoses Status post bilateral mastectomy Z90.13
[2022-08-19 07:28] VITALS: BP 142/80; PULSE 64; TEMP 97.9; O2SAT 98
[2022-08-19] MEDS: CLINDAMYCIN/D5W 600 MG/50 ML BAG IV SCH (07:29)
[2022-08-19] MEDS: BETAMETHASONE DIP AUG 0.05% OINT 15 GM TUBE EXT SCH (07:30)
[2022-08-19] MEDS: cloNIDine HCL 0.1 MG TAB PO SCH (07:32)
[2022-08-19] MEDS: ATENOLOL 50 MG TABLET PO SCH (07:32)
[2022-08-19] MEDS: INSULIN ASPART PER UNIT SC SCH (08:34)
[2022-08-19] MEDS ORDERED: HEPARIN SOD 5,000 UNIT/0.5 ML VIAL SQ SCH (09:00)
[2022-08-19] MEDS ORDERED: PANTOprazole 40 MG TAB PO SCH (09:00)
[2022-08-19 10:27] LABS: Basophils # (auto) 0.04 K/uL (0-0.2); Basophils % (auto) 0.6 %; Eosinophils # (auto) 0.05 K/uL (0-0.50); Eosinophils % (auto) 0.7 %; Hemoglobin 11.7 g/dl (12.0-16.0); Immature Granulocytes # (auto) 0.02 K/uL (0.00-0.02); Immature Granulocytes % (auto) 0.3 %; Lymphocytes # (auto) 1.83 K/uL (1.2-3.4); Lymphocytes % (auto) 25.9 %; Mean Corpuscular Hemoglobin 29.5 pg (25.0-34.0); Mean Corpuscular Hgb Conc 34.4 g/dL (32.0-36.0); Mean Corpuscular Volume 85.9 fL (80.0-100.0); Mean Platelet Volume 10.1 fL (9.4-12.3); Monocytes # (auto) 0.77 K/uL (0.24-0.82); Monocytes % (auto) 10.9 %; Neutrophils # (auto) 4.35 K/uL (1.4-6.5); Neutrophils % (auto) 61.6 %; Platelet Count 132 K/uL (130-400); RDW Coefficient of Variation 13.1 % (11.5-14.5); RDW Standard Deviation 40.3 fL (36.4-46.3); Red Blood Count 3.96 M/uL (3.93-5.22); White Blood Count 7.06 K/ul (4.8-10.8)
[2022-08-19 10:56] LABS: Albumin Globulin Ratio 1.3 (0.9-2); Albumin Level 3.4 gm/dl (3.4-5.0); BUN Creatinine Ratio 18.9 (10-20); Bilirubin,Total 0.6 mg/dl (0.2-1.0); Calcium 8.5 mg/dl (8.5-10.1); Creatinine Clr Calc Pharmacy 95.5 ml/min; Est GFR (African American) 99.2 ml/min; Est GFR (Non-African American) 85.6 ml/min; Globulin 2.6 gm/dl (2.5-4.0); Magnesium 1.8 mg/dl (1.7-2.4); Phosphorus 3.4 mg/dl (2.5-4.9); Potassium 3.5 mmol/L (3.5-5.1)
[2022-08-19 11:07] LABS: Estimated Average Glucose 174 mg/dl; Hemoglobin A1C 7.7 % (4.5-5.6)
--- NOTE | 2022-08-21 13:26 | Discharge Summary (DS) ---
DATE OF DISCHARGE: 08/19/2022. DATE OF ADMISSION: 08/18/2022. PRINCIPAL DIAGNOSIS: Left breast cancer. PROCEDURE: The patient underwent bilateral mastectomy with bilateral sentinel lymph node biopsy. HISTORY OF PRESENT ILLNESS: The patient is a 66-year-old female with recurrent left breast cancer op ting for bilateral mastectomy. On 08/18/2022, she underwent bilateral mastectomy with bilateral sent inel lymph node biopsy, which she tolerated very well. She was monitored overnight and felt stable f or discharge home the next day with drains in place to be seen in the surgical clinic within 1-2 week s. Job ID: [id number]
== END 2022-08-19 11:30 | disposition home or self-care (01) ==
LOC: 3E 06:24 → ASU 06:24